=== PATIENT | female | born 1990 | race Caucasian/White ===

== ENCOUNTER → 2018-06-07 11:35 | Outpatient (CLI) | payer OTHER, SELFPAY ==
[2018-06-07 10:32] VITALS: BMI 38.2
[2018-06-07 13:05] LABS: Absolute Lymphocyte Count 1.57 X10^3/ul (0.83-4.51); Absolute Neutrophil Count 7.9 X10^3/uL (2.0-7.7); Basophil# 0.02 X10^3/uL; Basophil% 0.2 % (0-1); Eosinophil# 0.14 X10^3/uL; Eosinophils% 1.3 % (0-5); Hematocrit 42.3 % (37-47); Hemoglobin 14.1 g/dl (12.0-15.0); Lymphocyte # 1.57 X10^3/ul (4.0); Lymphocyte % 15.1 % (19-41); Mean Corp Hgb Conc 33.3 g/gl (32-36); Mean Corpuscular Hgb 30.7 pg (27.0-32.0); Mean Platelet Vol. 10.2 fl (6.2-12.0); Monocyte% 6.7 % (0-10); Neutrophil # 7.94 X10^3/uL (2.7-7.7); Neutrophil % 76.3 % (47-70); Platelet Count 373 K/mm3 (150-450); RBC Distribution Width CV 13.1 % (11.6-14.6); RBC Distribution Width SD 43.6 fl (35.1-43.9); White Blood Count 10.4 K/mm3 (4.4-11.0)
[2018-06-07 13:06] LABS: POSITIVE COUNT NO; POSITIVE DIFFERENTIAL NO; POSITIVE MORPHOLOGY NO
[2018-06-07 13:22] LABS: Glucose Challenge Gest 1H 50g 90 mg/dL (70-140)
[2018-06-07 14:15] LABS: HIV - WCH Non-Reactive (Nonreactive); Rubella IgG 325.4 IU/mL
[2018-06-07 20:21] LABS: Chlamydia Trachomatis by PCR Negative (Negative); Neisserai gonorrhoeae by PCR Negative (Negative); Probe Check PASS; Sample Adequacy Control PASS; Specimen Processing Control PASS
[2018-06-08 11:52] LABS: HEPATITIS B SURFACE AG Negative (Negative)
[2018-06-10 07:39] LABS: Rapid Plasmin Reagin (RPR) NONREACTIVE (NONREACTIVE)
[2018-06-14 08:52] LABS: HPV Reflexed? NOT INDICATED
== END ==
PROVIDERS: Nurse Practitioner Women's Health; Referring Provider Obstetrics & Gynecology; Visit Provider Obstetrics & Gynecology
DX: Z34.90 Encounter for supervision of normal pregnancy, unspecified, unspecified trimester (principal); Z12.4 Encounter for screening for malignant neoplasm of cervix
CPT/HCPCS: 36415; 82950; 85025; 86592; 86703; 86762; 86850; 86900; 87086; 87088; 87340; 87491; 87591; 87624; 88175; G0145

== ENCOUNTER → 2018-08-02 11:47 | Outpatient (CLI) | payer OTHER, SELFPAY ==
[2018-08-02 10:57] VITALS: BMI 38.2
[2018-08-02 17:35] LABS: Amphetamine Urine VISTA NEGATIVE (<1000 ng/mL); Barbiturate Urine VISTA NEGATIVE (< 200 ng/mL); Benzodiazepine Urine VISTA NEGATIVE (< 200 ng/mL); Cocaine Urine VISTA NEGATIVE (< 300 ng/mL); Ecstacy Urine VISTA NEGATIVE (< 500 ng/mL); Methadone Urine VISTA NEGATIVE (< 300 ng/mL); PCP Urine VISTA NEGATIVE (< 25 ng/mL); THC Urine VISTA POSITIVE (< 50 ng/mL); Vista UDS pH Range 5
== END ==
PROVIDERS: Referring Provider Nurse Practitioner Women's Health; Visit Provider Nurse Practitioner Women's Health
DX: F12.90 Cannabis use, unspecified, uncomplicated (principal)
CPT/HCPCS: 36415; 80307; 82105

== ENCOUNTER → 2018-08-30 | Outpatient (CLI) | payer OTHER, SELFPAY ==
[2018-08-30 12:09] VITALS: BMI 38.2
[2018-08-30 13:17] LABS: T4 Free Direct 1.66 ng/dL (0.76-1.46); Thyroid Stim Hormone (TSH) 0.45 uIU/mL (0.358-3.74)
[2018-08-30 13:19] LABS: Amphetamine Urine VISTA NEGATIVE (<1000 ng/mL); Barbiturate Urine VISTA NEGATIVE (< 200 ng/mL); Benzodiazepine Urine VISTA NEGATIVE (< 200 ng/mL); Cocaine Urine VISTA NEGATIVE (< 300 ng/mL); Ecstacy Urine VISTA NEGATIVE (< 500 ng/mL); Methadone Urine VISTA NEGATIVE (< 300 ng/mL); PCP Urine VISTA NEGATIVE (< 25 ng/mL); THC Urine VISTA POSITIVE (< 50 ng/mL); Vista UDS pH Range 6
== END | disposition home or self-care (01) ==
PROVIDERS: Referring Provider Obstetrics & Gynecology; Visit Provider Obstetrics & Gynecology
DX: C73 Malignant neoplasm of thyroid gland (principal); F12.90 Cannabis use, unspecified, uncomplicated
CPT/HCPCS: 36415; 80307; 84439; 84443

== ENCOUNTER → 2018-10-18 | Outpatient (CLI) | payer OTHER, SELFPAY ==
[2018-10-18 10:21] VITALS: BMI 38.2
[2018-10-18 11:30] LABS: Protein, Urine (Random) 1542.1 mg/dL (<11.9); Protein:Creat Ratio 5449 mg/g CRE (0-200)
[2018-10-18 11:41] LABS: Absolute Lymphocyte Count 1.51 X10^3/ul (0.83-4.51); Basophil# 0.03 X10^3/uL; Basophil% 0.2 % (0-1); Eosinophil# 0.09 X10^3/uL; Eosinophils% 0.7 % (0-5); Hematocrit 40.6 % (37-47); Hemoglobin 13.9 g/dl (12.0-15.0); Lymphocyte # 1.51 X10^3/ul (4.0); Lymphocyte % 12.1 % (19-41); Mean Corp Hgb Conc 34.2 g/gl (32-36); Mean Corpuscular Hgb 29.5 pg (27.0-32.0); Mean Corpuscular Volume 86.2 fL (81-99); Mean Platelet Vol. 11.6 fl (6.2-12.0); Monocyte# 0.83 X10^3/uL; Monocyte% 6.6 % (0-10); Neutrophil # 10.01 X10^3/uL (2.7-7.7); Neutrophil % 80.2 % (47-70); Platelet Count 283 K/mm3 (150-450); RBC Distribution Width CV 12.7 % (11.6-14.6); RBC Distribution Width SD 38.8 fl (35.1-43.9); Red Blood Count 4.71 M/mm3 (4.2-5.4); White Blood Count 12.5 K/mm3 (4.4-11.0)
[2018-10-18 11:42] LABS: POSITIVE COUNT NO; POSITIVE DIFFERENTIAL NO; POSITIVE MORPHOLOGY NO
[2018-10-18 12:05] LABS: Glucose Challenge Gest 1H 50g 94 mg/dL (70-140); T4 Free Direct 1.37 ng/dL (0.76-1.46); Thyroid Stim Hormone (TSH) 2.94 uIU/mL (0.358-3.74)
== END | disposition home or self-care (01) ==
LOC: LABSPEC 10:58 → PAVLAB 11:00
PROVIDERS: Referring Provider Obstetrics & Gynecology; Visit Provider Obstetrics & Gynecology
DX: O12.12 Gestational proteinuria, second trimester (principal); O26.892 Other specified pregnancy related conditions, second trimester; C73 Malignant neoplasm of thyroid gland; Z3A.28 28 weeks gestation of pregnancy
CPT/HCPCS: 36415; 82570; 82950; 84156; 84439; 84443; 85025

== ENCOUNTER → 2018-10-21 | Outpatient (CLI) | payer OTHER, SELFPAY ==
[2018-10-18 10:21] VITALS: BMI 38.2
[2018-10-21 18:02] LABS: 24HR. Urine Creatinine 1.35 g/24 HR (0.70-1.90)
[2018-10-21 18:05] LABS: 24H Urine Creat. Total Vol. 0.68 L
[2018-10-23 06:22] LABS: 24HR. UA Prot. Total Volume 675 mL
[2018-10-23 06:44] LABS: Urine Protein (24 Hour) 1817.8 mg/dL (<11.9)
== END | disposition home or self-care (01) ==
LOC: LAB 17:00
PROVIDERS: Referring Provider Obstetrics & Gynecology; Visit Provider Obstetrics & Gynecology
DX: O12.13 Gestational proteinuria, third trimester (principal); O09.93 Supervision of high risk pregnancy, unspecified, third trimester; Z3A.00 Weeks of gestation of pregnancy not specified
CPT/HCPCS: 82570; 84156

== ENCOUNTER 2018-10-23 14:25 | Inpatient (IN) | payer OTHER, SELFPAY ==
[2018-10-18 10:21] VITALS: BMI 38.2
[2018-10-23] VITALS (23 sets, daily range): BP systolic 126–165; BP diastolic 82–105; PULSE 61–70; RESP 16–24; TEMP 36.1–36.6; O2SAT 93–100; BMI 40.8
[2018-10-23] MEDS: Betamethasone/Betamethasone 30 MG/5 ML Vial 12 MG IM (13:33)
[2018-10-23] MEDS: Lactated Ringers 1,000 ML 50 ML IV (13:41)
[2018-10-23 13:46] LABS: Hematocrit 41.9 % (37-47); Hemoglobin 14.5 g/dl (12.0-15.0); Mean Corp Hgb Conc 34.6 g/gl (32-36); Mean Corpuscular Hgb 29.8 pg (27.0-32.0); Mean Corpuscular Volume 86.2 fL (81-99); Mean Platelet Vol. 11.1 fl (6.2-12.0); Platelet Count 266 K/mm3 (150-450); RBC Distribution Width CV 12.7 % (11.6-14.6); RBC Distribution Width SD 40.2 fl (35.1-43.9); Red Blood Count 4.86 M/mm3 (4.2-5.4); Scan Indicated on CBC? Y/N NO
[2018-10-23 13:53] LABS: Fibrinogen 365 mg/dl (203-444)
[2018-10-23 14:02] LABS: International Normalized Ratio 0.9; Prothrombin Time (Protime)PT. 12.4 SECONDS (11.7-14.9)
[2018-10-23 14:03] LABS: Partial Thromboplast Time 29.1 Seconds (24.1-36.2)
[2018-10-23 14:06] LABS: ALB/GLOB Ratio 0.8 RATIO (0.9-2.4); AST(SGOT) 90 U/L (15-37); Alanine Aminotransfer ALT/SGPT 56 U/L (13-56); Albumin, Serum 2.4 g/dL (3.2-5.0); Alkaline Phosphatase 82 U/L (45-117); Anion Gap 6 (5-15); BUN 19 mg/dL (7-18); BUN/Creat Ratio 18.6 RATIO (10-20); Calcium,Total 7.9 mg/dL (8.5-10.1); Chloride 107 mmol/L (98-107); Creatinine, Serum 1.02 mg/dL (0.55-1.02); EST Glomerular Filtration Rate 69 mL/min (>60); Est Glom Filt Rate - Afr Amer 83 mL/min (>60); Estimated Creatinine Clearance 80.56 ml/min; Glucose 82 mg/dL (74-106); LDH 471 U/L (84-246); Protein, Total 5.4 g/dL (6.4-8.2); Sodium Level 137 mmol/L (136-145); Uric Acid 8.9 mg/dL (2.6-6.0)
[2018-10-23] MEDS: Magnesium Sulfate 20 GM/500 ML BAG IV (14:10)
[2018-10-23] MEDS: Oxytocin 30 units/NS 500 ml 30 UNITS/500 ML IV.SOLN 167 UNITS IV (14:38)
[2018-10-23] MEDS: Cefazolin 2 GM in 0.9% Normal Saline 100 ML IV ×2 (14:42→21:41)
[2018-10-23] MEDS: HYDROmorphone 0.5 MG/0.5 ML SYRINGE IV ×3 (14:50→19:47)
[2018-10-23] MEDS: Ondansetron 4 MG/2 ML Vial IV ×2 (14:52→22:30)
--- NOTE | 2018-10-23 15:37 | HP.PCM_ITS ---
- Problem List (1) Severe preeclampsia Status: Acute (2) Proteinuria affecting in third trimester Status: Acute Comment: plan weekly labs, weekly NST, plan home BP monitoring, MFM consult (3) anomaly Status: Acute Comment: Right/Left pyelectasis - repeat US with MFM in 6 weeks. (4) White coat syndrome with high blood pressure but without hypertension Status: Acute Comment: all normal both at work and in office (5) Status: Acute Qualifiers: Weeks of gestation: 25 weeks Qualified Code(s): Z3A.25 - 25 weeks gestation of Comment: carrier and genetic screening declined, AFP- negative. anatomy us ordered. fu us in 2 wks to complete spine views (6) Uses marijuana Status: Acute Comment: Random drug screen; Pos cannaboids 08/30- needs tox screen at next visit. (7) Thyroid cancer Status: Acute Comment: surgery and radiation iodine 2014, recurred 2016 lymph nodes removed. (8) Placental abruption in third trimester Status: Acute History Date of Admission: 10/23/18 Final JAZMINE: 01/07/19 Gestational age: 29 Weeks and 1 Days History of this : This is a 28 year-old, at 29w1d weeks gestational age presents for evaluation secondary to severe proteinuria on a 24-hour urine. Patient complains of nausea and vomiting and intermittent headache since night. She was seen in the office last Wednesday and had elevated protein in her urine but normal blood work and blood pressure. Upon evaluation initially blood pressures were in the 170s to 190s over 110s. Initial 24-hour urine was 12,000 and one liver enzyme was elevated as well as a high uric acid and a creatinine of 1.0. Platelets were normal and the rest of testing was within normal limits. She was treated with labetalol 20, 40, and 80 mg IV were given and magnesium was started. Blood pressure normalized to 140/84 and after having a reassuring tracing there was a sudden bradycardia into the 80s. This was confirmed on ultrasound and did not resolve with position changes fluid or oxygen. The suspicion for abruption was made and therefore the patient was taken to the back and the decision for immediate was made. Medical History: Medical History (Last Reviewed 10/18/18 @ 10:20 by Val Thornton) Thyroid cancer C73 Surgical History: Surgical History (Last Reviewed 10/18/18 @ 10:20 by Val Thornton) lymphadenectomy Onset Date: ~2016 neck- 36 lymph nodes removed 2 were cancer S/P thyroidectomy Onset Date: ~2014 Z98.890 Allergies No Known Allergies Allergy (Verified 10/18/18 10:20) Home Medications: Home Medications levothyroxine 300 mcg tablet 300 mcg PO DAILY 06/07/18 vitamin,calcium,yxzhrtxq-avye-rhiet acid tablet 1 tab PO DAILY 08/02/18 Smoking Status: Former smoker Alcohol: None Substance Use Type: Marijuana Number of Fetus(es): 1 Heart Tracins moderate variability and then terminal brenton History Past Pregnancies: Past Pregnancies Delivery Date Name GA/Weeks Outcome Route Weight Gender Labor Length Anesthesia Delivery Location Provider FOB Labs: Mom's Problem List Problem Status Onset Code Severe preeclampsia Acute O14.10 Placental abruption in third trimester Acute O45.93 Mom's Labs & Results 10/23/18 10/23/18 10/23/18 13:35 13:35 13:35 WBC 15.0 H RBC 4.86 Hgb 14.5 Hct 41.9 MCV 86.2 MCH 29.8 MCHC 34.6 RDW 12.7 RDW Differential 40.2 Plt Count 266 MPV 11.1 PT 12.4 INR 0.9 APTT 29.1 Fibrinogen Sodium Potassium Chloride Carbon Dioxide Anion Gap BUN Creatinine Cancelled Estim Creat Clear Calc Cancelled Est GFR (MDRD) Af Amer Cancelled Est GFR (MDRD) Non-Af Cancelled BUN/Creatinine Ratio Glucose Uric Acid Cancelled Calcium Total Bilirubin AST Cancelled ALT Cancelled Alkaline Phosphatase Lactate Dehydrogenase Total Protein Albumin Globulin Albumin/Globulin Ratio Blood Type Antibody Screen 10/23/18 10/23/18 10/23/18 13:35 13:35 14:50 WBC RBC Hgb Hct MCV MCH MCHC RDW RDW Differential Plt Count MPV PT INR APTT Fibrinogen 365 Sodium 137 Potassium 4.0 Chloride 107 Carbon Dioxide 24.0 Anion Gap 6 BUN 19 H Creatinine 1.02 Estim Creat Clear Calc 80.56 Est GFR (MDRD) Af Amer 83 Est GFR (MDRD) Non-Af 69 BUN/Creatinine Ratio 18.6 Glucose 82 Uric Acid 8.9 H Calcium 7.9 L Total Bilirubin 0.40 AST 90 H ALT 56 Alkaline Phosphatase 82 Lactate Dehydrogenase 471 H Total Protein 5.4 L Albumin 2.4 L Globulin 3.0 Albumin/Globulin Ratio 0.8 L Blood Type Pending Antibody Screen Pending Social History Smoking Status Former smoker Substance Use Type Marijuana Expected Delivery Method: Primary Section Review of Systems Constitutional: Denies: Fever, Malaise Eyes: Denies: Blurred vision, Vision Change HEENT: Denies: Head Aches, Visual Changes Cardiovascular: Denies: Chest Pain, Palpitations Respiratory: Denies: Cough, Shortness of Breath, Wheezing Gastrointestinal: Denies: Abdominal Pain, Diarrhea, Nausea, Vomiting Genitourinary: Denies: Dysuria, Hematuria Musculoskeletal: Denies: Joint Pain, Muscle pain Skin: Denies: Lesions, Rash Neurological: Denies: Blurred vision, Focal weakness, Headaches Psychiatric: Denies: Anxiety, Depression Endocrine: Denies: Heat/ Cold Intolerance Hematologic/ Lymphatic: Denies: Easy Bruising, Easy Bleeding Physical Exam General: Alert, Cooperative, No apparent distress HEENT: Atraumatic, Normocephalic. Negative for: Thyromegaly, Lymphadenopathy Cardiovascular: Regular rate Lungs: Normal air movement Abdomen: Soft, Non Tender, Gravid Neurological: Deep Tendon Reflexes 2+/4 and Symmetrical, Neuro grossly intact. Negative for: Clonus TELEPHONE CLAIMS REPRESENTATIVE: Normal external genitalia. Negative for: Vulvar lesions Estimated gestational size: Appropriate for gestational size Presentation: Cephalic Assessment/Plan All Active Problems (Last Reviewed 10/18/18 @ 10:20 by Val Thornton) Severe preeclampsia (Acute) Placental abruption in third trimester (Acute) Proteinuria affecting in third trimester (Acute) anomaly (Acute) White coat syndrome with high blood pressure but without hypertension (Acute) (Acute) Uses marijuana (Acute) Thyroid cancer (Acute) Supervision of normal first (Acute) Nausea/vomiting in (Resolved) This is a 28 year-old, , at 29w1d weeks gestational age with severe preeclampsia and abruption. 1. severe preeclampsia and complete abruption- patient underwent stat . continue magnesium , follow labs 2. acute renal insufficiency- follow Cr and proteinuria 3. prematurity- s/p 1 dose BMZ
--- NOTE | 2018-10-23 16:16 | PCM.OPRPT ---
Problem List (1) Severe preeclampsia Status: Acute (2) Proteinuria affecting in third trimester Status: Acute Comment: plan weekly labs, weekly NST, plan home BP monitoring, MFM consult (3) anomaly Status: Acute Comment: Right/Left pyelectasis - repeat US with MFM in 6 weeks. (4) White coat syndrome with high blood pressure but without hypertension Status: Acute Comment: all normal both at work and in office (5) Status: Acute Qualifiers: Weeks of gestation: 25 weeks Qualified Code(s): Z3A.25 - 25 weeks gestation of Comment: carrier and genetic screening declined, AFP- negative. anatomy us ordered. fu us in 2 wks to complete spine views (6) Uses marijuana Status: Acute Comment: Random drug screen; Pos cannaboids 08/30- needs tox screen at next visit. (7) Thyroid cancer Status: Acute Comment: surgery and radiation iodine 2014, recurred 2016 lymph nodes removed. (8) Placental abruption in third trimester Status: Acute Delivery Classification: Stat Final JAZMINE: 01/07/19 Gestational age: 29 Weeks and 1 Days Indications: severe preeclampsia at 29 weeks with acute complete abruption Indications for : Distress Description of Procedure: 28-year-old G1, P0 at 29 weeks 1 day presents secondary to severe proteinuria, upon evaluation was diagnosed with severe preeclampsia and then developed an acute abruption with a bradycardia. Patient denied any abdominal pain or vaginal bleeding but heart rate was in the 80s and not recovering despite position changes, fluid, oxygen, and reviewing blood pressures. Patient was taken to the back and placed under general anesthesia. Tilley catheter was placed. The patient was placed in the dorsal supine position with leftward tilt. Patient was prepped and draped in the normal sterile fashion. Pfannenstiel skin incision was made with the scalpel and carried through to the underlying layer of fascia with the scalpel. Fascia was nicked in the midline and the incision extended laterally. The peritoneum was entered digitally. The incision was stretched and a low transverse uterine incision was made with the scalpel. Upon incision into the uterus the entire gestational sac and placenta came out en bloc with the baby inside noting a complete separation of the placenta from the uterus present with no significant blood clot formed beyond the placenta yet. The cord was clamped and cut and the infant was handed off to awaiting nurse. Cord gases were sent and the ABG pH was 7.06 and the VBG pH was 7.128. The uterus was exteriorized cleared of all clots and debris, and the incision was closed in a double layer closure using #1 Monocryl. The uterus was returned to the maternal abdomen and gutters were cleared of all clots and debris. The ovaries and fallopian tubes were noted to be within normal limits. The peritoneum was closed with 3-0 Monocryl in a running fashion. Fascia was closed with 0 PDS in a running fashion. Subcutaneous tissue was copiously irrigated and the skin was closed with 3-0 Monocryl in a subcuticular fashion. Steri-Strips and Mepilex dressing were applied without complication. Patient was taken to recovery in stable condition. Amniotic Membrane Rupture Type: Artificial Amniotic Fluid Description: Clear Placenta Disposition: [facility] Specimen(s) sent to pathology: placenta Drain: Tilley to straight drain Cord Entanglement: Around neck x 1, loose Esitmated Blood Loss (ml): 800 Gender: Male Delayed cord clamping: No Pre-op Antibiotic Given: - - azithromycin Complications: - - complete abruption - Admit VTE Documentation VTE Present on Admission: No VTE Mechan Device Prophylaxis: SCD's
[2018-10-23 16:23] LABS: Amphetamine Urine VISTA NEGATIVE (<1000 ng/mL); Barbiturate Urine VISTA NEGATIVE (< 200 ng/mL); Benzodiazepine Urine VISTA NEGATIVE (< 200 ng/mL); Cocaine Urine VISTA NEGATIVE (< 300 ng/mL); Ecstacy Urine VISTA NEGATIVE (< 500 ng/mL); Methadone Urine VISTA NEGATIVE (< 300 ng/mL); PCP Urine VISTA NEGATIVE (< 25 ng/mL); THC Urine VISTA POSITIVE (< 50 ng/mL); Vista UDS pH Range 5
[2018-10-23 16:48] LABS: Hematocrit 40.5 % (37-47); Hemoglobin 13.8 g/dl (12.0-15.0); Mean Corp Hgb Conc 34.1 g/gl (32-36); Mean Corpuscular Hgb 29.7 pg (27.0-32.0); Mean Corpuscular Volume 87.3 fL (81-99); Platelet Count 221 K/mm3 (150-450); RBC Distribution Width CV 12.7 % (11.6-14.6); RBC Distribution Width SD 40.8 fl (35.1-43.9); Red Blood Count 4.64 M/mm3 (4.2-5.4); White Blood Count 16.2 K/mm3 (4.4-11.0)
[2018-10-23 16:49] LABS: Scan Indicated on CBC? Y/N NO
[2018-10-23 16:57] LABS: Prothrombin Time (Protime)PT. 12.7 SECONDS (11.7-14.9)
[2018-10-23 16:58] LABS: Fibrinogen 333 mg/dl (203-444); Partial Thromboplast Time 28.9 Seconds (24.1-36.2)
[2018-10-23 17:02] LABS: AST(SGOT) 89 U/L (15-37); Alanine Aminotransfer ALT/SGPT 58 U/L (13-56); Creatinine, Serum 1.11 mg/dL (0.55-1.02); EST Glomerular Filtration Rate 62 mL/min (>60); Est Glom Filt Rate - Afr Amer 76 mL/min (>60); Estimated Creatinine Clearance 74.03 ml/min
[2018-10-23] MEDS: 0.9% Saline Lock 10 ML Syringe IV (17:37)
[2018-10-23] MEDS: Labetalol 100 MG Tablet PO (18:13)
--- NOTE | 2018-10-23 21:51 | NURSING ---
Respiratory called to come down and set up pt. with incentive spirometer.
[2018-10-23] MEDS: oxyCODONE 5 MG Tablet PO (22:37)
[2018-10-24] VITALS (24 sets, daily range): BP systolic 128–160; BP diastolic 79–98; PULSE 64–85; RESP 14–18; TEMP 36.4–36.7; O2SAT 88–98
[2018-10-24] MEDS: Magnesium Sulfate 20 GM/500 ML BAG IV ×2 (00:22→11:30)
--- NOTE | 2018-10-24 00:59 | NURSING ---
Pt. used double pump to pump for 15 minutes at 0030. This RN educated pt. on the importance of pumping and breast stimulation every 2-3 hours. Pt. verbalized understanding.
[2018-10-24] MEDS: oxyCODONE 5 MG Tablet PO ×5 (03:26→21:54)
--- NOTE | 2018-10-24 03:43 | NURSING ---
Pt. using double breast pump.
[2018-10-24] MEDS: Levothyroxine 150 MCG Tablet 300 MCG PO (03:53)
[2018-10-24] MEDS: Ondansetron 4 MG/2 ML Vial IV ×2 (04:36→11:46)
[2018-10-24 05:04] LABS: Hematocrit 38.2 % (37-47); Hemoglobin 13.4 g/dl (12.0-15.0); Mean Corp Hgb Conc 35.1 g/gl (32-36); Mean Corpuscular Hgb 29.9 pg (27.0-32.0); Mean Corpuscular Volume 85.3 fL (81-99); Platelet Count 211 K/mm3 (150-450); RBC Distribution Width CV 12.5 % (11.6-14.6); RBC Distribution Width SD 37.9 fl (35.1-43.9); Red Blood Count 4.48 M/mm3 (4.2-5.4); White Blood Count 17.5 K/mm3 (4.4-11.0)
[2018-10-24 05:09] LABS: Scan Indicated on CBC? Y/N NO
[2018-10-24 05:20] LABS: ALB/GLOB Ratio 0.7 RATIO (0.9-2.4); AST(SGOT) 55 U/L (15-37); Alanine Aminotransfer ALT/SGPT 46 U/L (13-56); Albumin, Serum 2.1 g/dL (3.2-5.0); Alkaline Phosphatase 74 U/L (45-117); Anion Gap 12 (5-15); BUN 17 mg/dL (7-18); BUN/Creat Ratio 18.5 RATIO (10-20); Calcium,Total 7.5 mg/dL (8.5-10.1); Chloride 102 mmol/L (98-107); Creatinine, Serum 0.92 mg/dL (0.55-1.02); EST Glomerular Filtration Rate 78 mL/min (>60); Est Glom Filt Rate - Afr Amer 94 mL/min (>60); Estimated Creatinine Clearance 89.32 ml/min; Glucose 117 mg/dL (74-106); Potassium 4.5 mmol/L (3.5-5.1); Protein, Total 5.1 g/dL (6.4-8.2); Sodium Level 135 mmol/L (136-145)
--- NOTE | 2018-10-24 05:30 | NURSING ---
Pt. reports having a frontal headache. Denies any vision changes. Blood pressure 134/86. Tylenol given. Will continue to monitor.
[2018-10-24] MEDS: Acetaminophen 500 MG Tablet 1000 MG PO ×2 (05:49→20:07)
[2018-10-24] MEDS: Enoxaparin 40 MG/0.4 ML Syringe SC ×2 (05:49→17:41)
--- NOTE | 2018-10-24 06:59 | NURSING ---
Pt. awake and pumping. This RN took off nasal cannula oxygen to see how pt. maintains. Pulse ox held steady at 96% for a couple of minutes then dropped down to 88%. Oxygen reapplied to pt, and pulse ox went back up to 97%. Pt. denies shortness of breath. Lung sounds clear to auscultation, no wheezing or crackles noticed. RN will notify physician and continue to monitor.
[2018-10-24 08:17] LABS: Magnesium 6.8 mg/dL (1.6-2.6)
[2018-10-24] MEDS: Labetalol 100 MG Tablet PO (09:39)
[2018-10-24] MEDS: Prenatal Vits Tablet 1 TABLET PO (09:39)
[2018-10-24 10:01] LABS: Protein, Urine (Random) 689.8 mg/dL (<11.9); Protein:Creat Ratio 3466 mg/g CRE (0-200)
[2018-10-24] MEDS: Senna/Docusate Sodium 1 Tablet PO (13:35)
--- NOTE | 2018-10-24 15:50 | CASEMGMT ---
Addendum entered and electronically signed by Brooklyn England 10/26/18 14:24: Clarification - MOB and FOB live in an apartment. Home written in error. emerald Original Note: Social Work Assessment Labor and Delivery Unit Date of Referral: 10/24/2018 Time of Referral: 0249; 1156 Referred By: Dr. Engle Date of Intervention: 10/24/2018 Time of Intervention: 1550 Reason for Referral: 1. maternal history of THC with positive tox screen at admission, 29 week delivery and baby transferred to [facility]. 2. PHQ9 score of 9 History obtained from: patient/mother of baby (MOB) Lisseth Beardson and medical records. Household composition: MOB and father of baby (FOB) Aniya Madden live together in own home. MOB reports home situation is safe and adequate. Also in the home are pet dogs and cat. Patient's parent/guardian status: MOB is 28 year old single female involved with FOB for the last 1.5 years. MOB denies any safety concerns or history of abuse in this relationship. [place] baby, Dhaval Madden (born 10.23.2017) is the first child for both parents. Medical History: MOB is G1, P0 to 1 after delivering Dhaval at 29 weeks gestation. MOB with care starting at 9 weeks and good thereafter. Record indicates MOB with history of thyroid cancer, pre-eclampsia and placental abruption. Baby born weighing 2 pounds 5 ounces. Apgars 2-6-8 at 1-5-10 minutes of life respectively. MOB delivered baby via STAT caesarian section. Educational Status: MOB reports to have a high school diploma. Denies any IEP in school, denies any reading, writing, or learning comprehension issues. Financial Status: MOB was working at [employer] and has worked there for about 8 years in total between [place] and [place]. FOB works as general manage for [employer]. Infant Supplies: MOB reports to have some baby supplies including a crib, car seat, and some clothing. MOB reports the baby shower is set for the end of the month. MOB will need to get some preemie clothing. Childcare/Caregiver(s): MOB plans to be primary caregiver with help from FOB and family. Transportation: Reports to have adequate transportation. Programs/Agencies Involved: MOB denies any agency involvement. Denies needs for WIC at this point. Children Services/Legal Issues: None reported. Behavioral Health Issues: Mental Health History: MOB reports history of depression and anxiety after MOB was diagnoses with Thyroid Cancer, having surgery and then finding out MOB's mother of drug overdose the same day. MOB reports then developed cancer a second time 2 years later. OCTAVIA reports was treated with medications in the state of [place], 3 different types that MOB unable to recall the names of during social work assessment. MOB reports took self off cold turkey and felt side effects, and learned a lesson that should work with doctors if wanting to change medications. MOB reports went to a counselor in [place], as around the time MOB stopped the medications is when MOB moved to [place]. MOB denies any history of psychiatric hospitalization, denies any history of thoughts of harm to self/no thoughts/plans/intent for suicide. MOB admits one time in [place] having thoughts of wanting to kill MOB's exboyfriend but was stopped by others from acting on thoughts. MOB denies any history of thoughts of harm to others since. PHQ9: MOB scored a 9 for the depression this admission, falling into the range of mild depression symptoms. MOB had indicated sleeping too much, but also questions whether this is in part due to MOB's physical issues related to and preeclampsia. MOB also attributes the appetite and energy issues as directly related to physical issues in rather than due to mood. MOB reports to feel happy at this time, denies depression, though is worried about her baby. Substance Use History: MOB denies use or abuse of alcohol during . MOB denies any history of cocaine, heroin, meth, or prescription pills. MOB endorsees use of marijuana during to help with appetite. MOB reports did not want to do the prescription medication route as has read too many negative things. MOB reports ingested the marijuana by smoking and eating gummies. MOB reports last use was 1-2 weeks ago and was intermittent use. MOB reports to be a former tobacco smoker. Family History: MOB's mother 4 years ago of a drug overdose. MOB reports her mother hid the addiction well from others. Drug Screens: MOB with positive drug screens for marijuana on 08-02-2018, 08-30-2018, and at delivery on 10-23-2018. No screens noted for baby, as baby transferred to [facility] shortly after delivering. Family/Social Stressors: premature delivery and baby now at [facility]. Support Systems: MOB reports FOB is supportive and helpful. Identifies a great aunt and uncle who raised MOB and had guardianship of MOB as good supports. MOB reports that FOB's mother is another good support person to help out with the baby. ASSESSMENT: MOB pleasant and cooperative with social work visit. MOB held good eye contact. MOB answered questions and did expand on answers when appropriate, such as discussing history of depression and when that history surfaced. MOB reports to have a good support system at this time, and has started to get things ready for baby. MOB tearful when talking about guilt feelings about baby being born premature, that MOB had gotten sick earlier in the week after eating and had attributed this to the flu. MOB reports the FOB wanted MOB to go to the ER but MOB refused due to thinking that was fine and just dealing with flu symptoms. Supportive listening offered and encouragement given to MOB. Discussed with MOB that a director social service from [facility] will be following and that for continuity of care of baby and family will be giving handoff report to the [facility] director social service. MOB voiced understanding. Educated MOB to need to call children services due to repeated positive drug screens and substance exposure to baby in utero. MOB voiced understanding. Answer MOB's questions as able. Safe Plan of Care for infant related to substance use: MOB reports will not be using marijuana moving forward and reports that use of marijuana was only during , that before did not use this substance. PLAN: MOB given information on [facility] resources as well as depression packed. Educated to [facility] and informed MOB that [facility] will likely follow up with MOB about receptivity to referral. Plan to call [facility] Children Services about substance exposed infant. MOB is aware. -DARIEN Ren, INTERFACE ENGINEER
--- NOTE | 2018-10-24 16:30 | CASEMGMT ---
Social Work Labor and Delivery Handoff report to Christi Higgins, psychiatric social worker supervisor at [facility] ([phone]). Christi asked if this typewriter aligner will be calling children services. Confirmed plan to do so. Christi reports to have packet of resources to review with MOB, after this typewriter aligner mentioned to Crhisti as to whether baby may qualify for disability related to gestational age and weight. -MIGUEL Ren, LACTATION NURSE
--- NOTE | 2018-10-24 21:17 | NURSING ---
BP of 160/09 at 1945 and 151/98 at 1999, informed Dr Engle when she was on floor rounding on pt. Pt has slight headache, Tylenol given. Pt has +1 reflexes and +1 edema in lower extremities. Orders given to increase labetalol to 200mg po BID and give first dose now.
[2018-10-24] MEDS: Labetalol 200 MG Tablet PO (21:53)
[2018-10-25] VITALS (13 sets, daily range): BP systolic 134–166; BP diastolic 76–97; PULSE 67–87; RESP 16–24; TEMP 36.4–36.9; O2SAT 96–98
--- NOTE | 2018-10-25 00:46 | PCM.PN.OB ---
Patient Problems: Active and Suspected Problems (Last Reviewed 10/18/18 @ 10:20 by Val Thornton) Severe preeclampsia (Acute) Placental abruption in third trimester (Acute) Subjective: late entry - patient seen 10/24/18 at 8 am- feels dizzy with magnesium, had some emesis yesterday but eating breakfast now. denies any CP SOB, no MONTESINOS or visual changes - Physical Exam General: Alert, Oriented x3 Cardiovascular: Regular rate Abdomen: Soft, Non Tender Vital Signs Temp Pulse Resp BP Pulse Ox 98.1 F 68 18 157/97 H 97 10/24/18 19:45 10/25/18 00:30 10/25/18 00:30 10/25/18 00:30 10/24/18 19:45 Oxygen Flow Rate (L/min) 1 Oxygen Delivery Method Room Air Weight: 260 lb 5.855 oz Body Mass Index (BMI) 40.8 Intake and Output for Last 24 Hours 10/23/18 10/24/18 10/25/18 23:59 23:59 23:59 Intake Total 2452 / 2452 2169 / 2169 Output Total 472 / 472 1828 / 1828 Balance 1979 / 1979 341 / 341 Laboratory Tests Past 24 Hrs 10/24/18 10/24/18 10/24/18 04:54 04:54 07:45 WBC 17.5 H RBC 4.48 Hgb 13.4 Hct 38.2 MCV 85.3 MCH 29.9 MCHC 35.1 RDW 12.5 RDW Differential 37.9 Plt Count 211 MPV 11.0 Sodium 135 L Potassium 4.5 Chloride 102 Carbon Dioxide 21.0 Anion Gap 12 BUN 17 Creatinine 0.92 Estim Creat Clear Calc 89.32 Est GFR (MDRD) Af Amer 94 Est GFR (MDRD) Non-Af 78 BUN/Creatinine Ratio 18.5 Glucose 117 H Calcium 7.5 L Magnesium 6.8 H* Total Bilirubin 0.30 AST 55 H ALT 46 Alkaline Phosphatase 74 Total Protein 5.1 L Albumin 2.1 L Globulin 3.0 Albumin/Globulin Ratio 0.7 L U Random Total Protein Urine Creatinine Protein/Creatinin Ratio 10/24/18 09:25 WBC RBC Hgb Hct MCV MCH MCHC RDW RDW Differential Plt Count MPV Sodium Potassium Chloride Carbon Dioxide Anion Gap BUN Creatinine Estim Creat Clear Calc Est GFR (MDRD) Af Amer Est GFR (MDRD) Non-Af BUN/Creatinine Ratio Glucose Calcium Magnesium Total Bilirubin AST ALT Alkaline Phosphatase Total Protein Albumin Globulin Albumin/Globulin Ratio U Random Total Protein 689.8 H Urine Creatinine 199.00 Protein/Creatinin Ratio 3466 H Medical Necessity - Tobacco Use Smoking Status: Former smoker Assessment/Plan All Active Problems (Last Reviewed 10/18/18 @ 10:20 by Val Thornton) Severe preeclampsia (Acute) Placental abruption in third trimester (Acute) Proteinuria affecting in third trimester (Acute) anomaly (Acute) White coat syndrome with high blood pressure but without hypertension (Acute) (Acute) Uses marijuana (Acute) Thyroid cancer (Acute) Supervision of normal first (Acute) Nausea/vomiting in (Resolved) S/P Stat LTCS with severe preeclampsia and abruption POD 1 1. severe preeclampsia and complete abruption- patient underwent stat . continue magnesium x 24 hours, labetalol 100mg BID, labs improving 2. acute renal insufficiency- proteinuris and CR recovering well 3. routine postop care- ambulate, increase po intake, oral pain control 4. rubella immune 5. Rh positive
--- NOTE | 2018-10-25 01:11 | PCM.PN.OB ---
Patient Problems: Active and Suspected Problems (Last Reviewed 10/18/18 @ 10:20 by Val Thornton) Severe preeclampsia (Acute) Placental abruption in third trimester (Acute) Subjective: late entry- patient seen at 9:00 pm 10/24/18- significant improvement in symptoms since magnesium discontinued. tolerating po no CP SOB N V MONTESINOS BV. ambulating. - Physical Exam General: Alert, Oriented x3 Vital Signs Temp Pulse Resp BP Pulse Ox 98.1 F 68 18 157/97 H 97 10/24/18 19:45 10/25/18 00:30 10/25/18 00:30 10/25/18 00:30 10/24/18 19:45 Oxygen Flow Rate (L/min) 1 Oxygen Delivery Method Room Air Weight: 260 lb 5.855 oz Body Mass Index (BMI) 40.8 Intake and Output for Last 24 Hours 10/23/18 10/24/18 10/25/18 23:59 23:59 23:59 Intake Total 2452 / 2452 2169 / 2169 Output Total 472 / 472 1828 / 1828 Balance 1979 / 1979 341 / 341 Laboratory Tests Past 24 Hrs 10/24/18 10/24/18 10/24/18 04:54 04:54 07:45 WBC 17.5 H RBC 4.48 Hgb 13.4 Hct 38.2 MCV 85.3 MCH 29.9 MCHC 35.1 RDW 12.5 RDW Differential 37.9 Plt Count 211 MPV 11.0 Sodium 135 L Potassium 4.5 Chloride 102 Carbon Dioxide 21.0 Anion Gap 12 BUN 17 Creatinine 0.92 Estim Creat Clear Calc 89.32 Est GFR (MDRD) Af Amer 94 Est GFR (MDRD) Non-Af 78 BUN/Creatinine Ratio 18.5 Glucose 117 H Calcium 7.5 L Magnesium 6.8 H* Total Bilirubin 0.30 AST 55 H ALT 46 Alkaline Phosphatase 74 Total Protein 5.1 L Albumin 2.1 L Globulin 3.0 Albumin/Globulin Ratio 0.7 L U Random Total Protein Urine Creatinine Protein/Creatinin Ratio 10/24/18 09:25 WBC RBC Hgb Hct MCV MCH MCHC RDW RDW Differential Plt Count MPV Sodium Potassium Chloride Carbon Dioxide Anion Gap BUN Creatinine Estim Creat Clear Calc Est GFR (MDRD) Af Amer Est GFR (MDRD) Non-Af BUN/Creatinine Ratio Glucose Calcium Magnesium Total Bilirubin AST ALT Alkaline Phosphatase Total Protein Albumin Globulin Albumin/Globulin Ratio U Random Total Protein 689.8 H Urine Creatinine 199.00 Protein/Creatinin Ratio 3466 H Medical Necessity - Tobacco Use Smoking Status: Former smoker Assessment/Plan All Active Problems (Last Reviewed 10/18/18 @ 10:20 by Val Thornton) Severe preeclampsia (Acute) Placental abruption in third trimester (Acute) Proteinuria affecting in third trimester (Acute) anomaly (Acute) White coat syndrome with high blood pressure but without hypertension (Acute) (Acute) Uses marijuana (Acute) Thyroid cancer (Acute) Supervision of normal first (Acute) Nausea/vomiting in (Resolved) S/P Stat LTCS with severe preeclampsia and abruption POD 1 1. severe preeclampsia and complete abruption- patient underwent stat . S/P magnesium x 24 hours, labetalol 100mg BID will increase to 200mg BID due to rising bps 2. acute renal insufficiency- proteinuria and CR recovering well, good urine output 3. routine postop care- ambulate, oral pain control 4. rubella immune 5. Rh positive
[2018-10-25] MEDS: oxyCODONE 5 MG Tablet PO ×3 (03:10→21:56)
[2018-10-25] MEDS: Levothyroxine 150 MCG Tablet 300 MCG PO (05:36)
[2018-10-25] MEDS: Enoxaparin 40 MG/0.4 ML Syringe SC ×2 (05:37→18:52)
[2018-10-25] MEDS: Prenatal Vits Tablet 1 TABLET PO (10:01)
[2018-10-25] MEDS: Labetalol 200 MG Tablet PO (10:01)
--- NOTE | 2018-10-25 11:03 | PCM.PN.OB ---
Patient Problems: Active and Suspected Problems (Last Reviewed 10/18/18 @ 10:20 by Val Thornton) Severe preeclampsia (Acute) Placental abruption in third trimester (Acute) Subjective: doing better, feeling more energy and more clear now off the magnesium, pain controlled no CP SOB N V ambulating some but needs to increase tolerating po lochia moderate, - Physical Exam General: Alert, Oriented x3 Abdomen: Soft, Non Tender, - - incision: C/D/I Vital Signs Temp Pulse Resp BP Pulse Ox 97.6 F L 75 22 H 151/87 H 96 10/25/18 09:00 10/25/18 09:00 10/25/18 09:00 10/25/18 09:00 10/25/18 04:00 Oxygen Flow Rate (L/min) 1 Oxygen Delivery Method Room Air Weight: 260 lb 5.855 oz Body Mass Index (BMI) 40.8 Intake and Output for Last 24 Hours 10/23/18 10/24/18 10/25/18 23:59 23:59 23:59 Intake Total 2452 / 2452 2169 / 2169 Output Total 472 / 472 1828 / 1828 Balance 1979 / 1979 341 / 341 Medical Necessity - Tobacco Use Smoking Status: Former smoker Assessment/Plan All Active Problems (Last Reviewed 10/18/18 @ 10:20 by Val Thornton) Severe preeclampsia (Acute) Placental abruption in third trimester (Acute) Proteinuria affecting in third trimester (Acute) anomaly (Acute) White coat syndrome with high blood pressure but without hypertension (Acute) (Acute) Uses marijuana (Acute) Thyroid cancer (Acute) Supervision of normal first (Acute) Nausea/vomiting in (Resolved) S/P Stat LTCS with severe preeclampsia and abruption POD 2 1. severe preeclampsia and complete abruption- patient underwent stat . S/P magnesium x 24 hours, labetalol 100mg BID will increase to 200mg BID due to rising bps 2. acute renal insufficiency- proteinuria and CR recovering well, good urine output 3. routine postop care- ambulate, oral pain control 4. rubella immune 5. Rh positive
[2018-10-25] MEDS: Labetalol 100 MG Tablet PO (11:33)
[2018-10-25] MEDS: Senna/Docusate Sodium 1 Tablet PO (13:52)
--- NOTE | 2018-10-25 15:53 | DCINST_ITS ---
Discharge Diet: No Restrictions Discharge Activity: May Not Drive - for 2 weeks, May not drive while taking narcotic pain medications., May Shower, May Take a Tub Bath - in 7 days May resume sexual activity in: 4-6 weeks Lifting Restrictions: 20 pounds Additional Activity Instructions:: Nothing in the vagina for 4-6 weeks. You may return to work/school in 6 weeks. Call your doctor if your incision/area has: Continuous Slow Oozing, Sudden Increased Bleeding, Increased Pain/ Swelling, Increased Redness, Foul Smelling Discharge Call your doctor if you observe: Fever of 101 or Higher, Using more than one pad per hour - for 2 hours Suture Line Care: Avoid Pulling/Pushing, Avoid Pinching/Bending Cleanse incision/area with: Keep Dressing Clean & Dry Additional Instructions: If you experience any of the following, contact your healthcare provider. * Bleeding that soaks a pad every hour for 2 hours * Fever 100.4 or higher * Unrelieved incision or abdominal pain * Swelling, redness, discharge or bleeding from your incision or episiotomy site * Your incision begins to separate * Problems urinating (including inability to urinate or burning while urinating). * Visual changes * Severe headache * Flu-like symptoms * Pain or redness in one of both of your breasts * Pain, warmth, tenderness or swelling in your legs, especially the calf area * Frequent nausea and vomiting * Symptoms of depression or anxiety If you experience any of the following, call 911 or go to the nearest Emergency Room. * Chest pain * Problems breathing * Seizure activity * Partial or complete paralysis of a body part, slurred speech, weakness or drooping of the face, or a sudden inability to walk or hold your balance Allergies/Adverse Reactions: Allergies Bleach (Sodium Hypochlorite) Allergy (Verified 10/23/18 22:50) Anaphylaxis Medications to take at Discharge levothyroxine 300 mcg tablet 300 mcg PO DAILY 06/07/18 vitamin,calcium,bmbcjlyh-cmnr-jlqhn acid tablet 1 tab PO DAILY 08/02/18 Blood Pressure Kit TrayLarge [Blood Pressure Monitor] 1 ea MC BID #1 kit 10/25/18 Labetalol [Trandate (Beta Carmelo)] 300 mg PO BID #60 tab 10/25/18 Oxycodone HCl/Acetaminophen [Percocet 5-325] 1 - 2 tablet PO Q4H PRN PRN 7 Days #28 tablet 10/25/18 The following prescriptions were given: Blood Pressure Kit Med,Large [Blood Pressure Monitor] 1 ea MC BID #1 kit Transmission Status: Pending to ARI [facility] RD Oxycodone HCl/Acetaminophen [Percocet 5-325] 1 - 2 tablet PO Q4H PRN PRN 7 Days #28 tablet PRN Reason: Moderate-Severe pain Transmission Status: Received by ARI MARSH RD Labetalol [Trandate (Beta Carmelo)] 300 mg PO BID #60 tab Transmission Status: Pending to ARI [facility]SH [facility] Follow-Up: Call to make an appointment with your doctor for an incision check in 1-2 weeks. You will also need a 6 week post- follow up appointment. Test results from this visit will be discussed in further detail at your follow- up appointment, if applicable. Please Follow Up With: Annia Engle MD - Call to make an appointment for an incision check in 1-2 [phone] When: You will need a post- check in 6 weeks. Primary Care Physician: Care Physician,No Primary [Primary Care Provider] -
[2018-10-25] MEDS: NIFEdipine 30 MG Tablet PO (18:56)
--- NOTE | 2018-10-25 20:47 | NURSING ---
2034 notified of elevated BP at 2026. Plan to recheck BP in 15min and if elevated start hypertensive protocol with 20mg Procardia PO
[2018-10-25] MEDS: Acetaminophen 500 MG Tablet 1000 MG PO (20:48)
[2018-10-25] MEDS: Labetalol 100 MG Tablet 300 MG PO (21:50)
[2018-10-26] MEDS: oxyCODONE 5 MG Tablet PO ×2 (03:10→10:27)
[2018-10-26 04:00] VITALS: BP 124/76; PULSE 71; RESP 16; TEMP 36.7
[2018-10-26] MEDS: Levothyroxine 150 MCG Tablet 300 MCG PO (04:08)
[2018-10-26] MEDS: Enoxaparin 40 MG/0.4 ML Syringe SC (06:00)
[2018-10-26 08:00] VITALS: BP 147/100; PULSE 83; RESP 16; TEMP 36.8; O2SAT 97
[2018-10-26] MEDS: Prenatal Vits Tablet 1 TABLET PO (08:28)
[2018-10-26] MEDS: NIFEdipine 30 MG Tablet PO (08:28)
[2018-10-26] MEDS: Labetalol 100 MG Tablet 300 MG PO (08:29)
[2018-10-26] MEDS: Acetaminophen 500 MG Tablet 1000 MG PO (09:08)
--- NOTE | 2018-10-26 09:22 | PCM.PN.OB ---
Patient Problems: Active and Suspected Problems (Last Reviewed 10/18/18 @ 10:20 by Val Thornton) Severe preeclampsia (Acute) Placental abruption in third trimester (Acute) Subjective: patient doing even better more energy ambulating oral pain control no CP SOB N V MONTES[facility] wanting to leave - Physical Exam General: Alert, Oriented x3 Abdomen: - - C/D/I Vital Signs Temp Pulse Resp BP Pulse Ox 98.3 F 83 16 147/100 H 97 10/26/18 08:00 10/26/18 08:00 10/26/18 08:00 10/26/18 08:00 10/26/18 08:00 Oxygen Flow Rate (L/min) 1 Oxygen Delivery Method Room Air Weight: 260 lb 5.855 oz Body Mass Index (BMI) 40.8 Intake and Output for Last 24 Hours 10/24/18 10/25/18 10/26/18 23:59 23:59 23:59 Intake Total 2169 / 2169 Output Total 1828 / 1828 Balance 341 / 341 Medical Necessity - Tobacco Use Smoking Status: Former smoker Assessment/Plan All Active Problems (Last Reviewed 10/18/18 @ 10:20 by Val Thornton) Severe preeclampsia (Acute) Placental abruption in third trimester (Acute) Proteinuria affecting in third trimester (Acute) anomaly (Acute) White coat syndrome with high blood pressure but without hypertension (Acute) (Acute) Uses marijuana (Acute) Thyroid cancer (Acute) Supervision of normal first (Acute) Nausea/vomiting in (Resolved) S/P Stat LTCS with severe preeclampsia and abruption POD 3 1. severe preeclampsia and complete abruption- patient underwent stat . S/P magnesium x 24 hours, labetalol 300mg BID and procardial 30mg XL improved control now. 2. acute renal insufficiency- proteinuria and CR recovering well, good urine output 3. routine postop care- ambulate, oral pain control 4. rubella immune 5. Rh positive dc home today
[2018-10-26 10:32] VITALS: BP 148/81; PULSE 84; RESP 16; TEMP 36.8; O2SAT 98
--- NOTE | 2018-10-26 10:51 | NURSING ---
pt discharged to home at this time, pt medicated with oxyir 10mgpo prior to discharge, family with pt at time of dc.
--- NOTE | 2018-10-26 14:23 | CASEMGMT ---
Social Work Labor and Delivery Referral to [facility] ([facility]) Veronica Willingham, intake forge shop supervisor. Referral due to substance exposed infant. Brief maternal and histories provided. -MIGUEL Ren, EMAIL CAMPAIGN MANAGER
== END 2018-10-26 10:40 | disposition home or self-care (01) | DRG 787 ==
LOC: WPOUT 14:27
PROVIDERS: Admitting Provider Obstetrics & Gynecology; Visit Provider Obstetrics & Gynecology
DX: O14.14 Severe pre-eclampsia complicating childbirth (principal); O26.833 Pregnancy related renal disease, third trimester; O45.8X3 Other premature separation of placenta, third trimester; O76 Abnormality in fetal heart rate and rhythm complicating labor and delivery; O69.81X0 Labor and delivery complicated by cord around neck, without compression, not applicable or unspecified; N28.89 Other specified disorders of kidney and ureter; Z3A.29 29 weeks gestation of pregnancy; Z37.0 Single live birth
CPT/HCPCS: 36415; 59050; 80053; 80307; 82565; 82570; 83615; 83735; 84156; 84450; 84460; 84550; 85027; 85384; 85610; 85730; 86850; 86900; J7120; A4216; J0702; J2405

== ENCOUNTER 2019-08-27 14:06 | Emergency (ER) | payer OTHER, SELFPAY ==
[2018-12-09 13:41] VITALS: BMI 40.8
[2019-08-27 14:07] VITALS: BP 142/83; PULSE 104; RESP 16; TEMP 38.8; O2SAT 95; BMI 39.1
--- NOTE | 2019-08-27 14:34 | RAD_ITS ---
STUDY: X-RAY CHEST REASON FOR EXAM: Female, 29 years old. cough, vomiting, fever TECHNIQUE: Single AP portable view of the chest. COMPARISON: None. FINDINGS: Left lower lung linear increased opacity. There is no demonstrated pleural abnormality. Normal size heart. Normal mediastinum and minda. Normal visualized pulmonary arteries. Normal visualized aortic arch and descending thoracic aorta. Normal visualized thoracic spine. Normal visualized ribs, clavicles, and shoulders. There is no demonstrated abnormality of the visualized soft tissue structures of the upper abdomen. RAD/Chest 1 View (Portable) IMPRESSION: Left lower lung atelectasis. Electronically Signed: Bartolo Dwyer MD at 15:45 EDT , Service support ,
--- NOTE | 2019-08-27 14:36 | ED.VISSUMM ---
- ER Visit Summary Date of Service: 08/27/19 Chief Complaint: Fever, nausea, vomiting, diarrhea History of Present Illness: The patient is a 29 F who presents with fever, nausea, vomiting, diarrhea for the past 3 days. Patient states it is been constant. Patient states she is unable to keep anything down. Patient admits to some urinary frequency but denies any dysuria or hematuria. Patient denies any hematemesis or coffee-ground emesis. Patient denies any melena or hematochezia. Patient states her diarrhea has been watery. Patient states that when she went to work today they checked her temperature and noted she had a fever. Patient states her boss told her to come to the emergency department. Physical Examination: Vital signs are stable. Patient is febrile here with a temperature of 101.8. Patient is in no acute distress. Oral mucosa is pink and moist. Neck is supple. Trachea is midline. There is no JVD. Heart was regular rate and rhythm. Lungs showed few scattered rhonchi. There is good respiratory effort. Abdomen is soft. Bowel sounds are normal. There is no tenderness. Cranial nerves II through XII are intact. There are no focal motor or sensory deficits noted. Extremities are intact. There is mild lower extremity tenderness. There is no edema. Test Results: CBC showed normal white blood cell count however, there were 36 segs 28 bands, and 28 lymphocytes. Comprehensive metabolic profile showed an elevated bilirubin of 2.9, alk phos of 193, ALT of 3520, and AST of 4649. Urinalysis showed leukocyte esterase of 500 with positive nitrates. Occult blood was 250, ketones were 150. There are 25-50 white blood cells and 25-50 red blood cells with 0-5 epithelial cells 1+ bacteria. Serum hCG was negative. Portable chest x-ray shows left basilar atelectasis. This was interpreted by the radiologist and myself. Emergency Department Course and Treatment: Patient was given Tylenol and IV fluids here. Patient was also given a dose of Zofran. Patient was feeling better on reevaluation. Patient was advised of her results. Patient states that her boyfriend recently tested positive for hepatitis A. Patient states that they have been eating out a lot recently. Patient was given a prescription for Macrobid. Patient was instructed to drink plenty of fluids. Patient was referred to a primary care physician for follow-up care in 5 to 7 days. Disposition: Discharge home Impression: 1. Urinary tract infection 2. Hepatitis This note was generated with 3D Forms dictation software. It may contain incorrect words, spelling, and punctuation that were not noted in review of the chart prior to signing ED Disposition - Plan for ED Patient: Disposition: Home or Assisted Living Diagnosis: Urinary tract infection, Hepatitis Instructions: ED CYSTITIS Female Adult, ED Hepatitis Cause Unknown Test Pending Prescriptions: Nitrofurantoin Macrocrystals [Macrobid] 100 mg PO Q12 #14 cap Prescription Printed Referrals: Care Physician,No Primary [Primary Care Provider] - Vanessa Loo MD [STAFF PHYSICIAN] - 3-5 Days
[2019-08-27] MEDS: Ondansetron 4 MG/2 ML Vial IV (14:52)
[2019-08-27] MEDS: Acetaminophen 500 MG Tablet 1000 MG PO (14:53)
[2019-08-27] MEDS: 0.9% Normal Saline 1,000 ML 1000 ML IV (14:53)
[2019-08-27 15:03] LABS: Hematocrit 45.2 % (37-47); Hemoglobin 15.2 g/dL (12.0-15.0); Mean Corp Hgb Conc 33.6 g/dL (32-36); Mean Corpuscular Hgb 29.9 pg (27.0-32.0); Mean Corpuscular Volume 88.8 fL (81-99); Mean Platelet Vol. 10.6 fl (6.2-12.0); POSITIVE MORPHOLOGY YES; Platelet Count 177 K/mm3 (150-450); RBC Distribution Width CV 12.4 % (11.6-14.6); Red Blood Count 5.09 M/mm3 (4.2-5.4)
[2019-08-27 15:27] LABS: Internal QC Validated? YES +Cl - CLEAR BKGD; Pregnancy, Serum, hCG Quali. NEGATIVE Negative
[2019-08-27 15:50] LABS: ALB/GLOB Ratio 1.2 RATIO (0.9-2.4); AST(SGOT) 4649 U/L (15-37); Alanine Aminotransfer ALT/SGPT 3520 U/L (13-56); Albumin, Serum 4.1 g/dL (3.2-5.0); Alkaline Phosphatase 193 U/L (45-117); Anion Gap 7 (5-15); BUN 9 mg/dL (7-18); BUN/Creat Ratio 9.8 RATIO (10-20); Calcium,Total 8.1 mg/dL (8.5-10.1); Chloride 101 mmol/L (98-107); Creatinine, Serum 0.92 mg/dL (0.55-1.02); EST Glomerular Filtration Rate 77 mL/min (>60); Est Glom Filt Rate - Afr Amer 94 mL/min (>60); Estimated Creatinine Clearance 88.53 ml/min; Globulin 3.4 g/dL (2.2-4.2); Glucose 102 mg/dL (74-106); Lipase 46 U/L (73-393); Potassium 3.4 mmol/L (3.5-5.1); Protein, Total 7.5 g/dL (6.4-8.2); Sodium Level 136 mmol/L (136-145)
[2019-08-27 16:04] LABS: Differential Indicated MANUAL DIFF
[2019-08-27 16:05] VITALS: BP 127/74; PULSE 96; RESP 16; TEMP 36.9; O2SAT 97
[2019-08-27 16:05] LABS: Lymphocyte 28 % (19-41); Neutrophil-Band 28 % (0-5); Neutrophil-Segmented 36 % (47-70); Total Cells Counted 100 (MANUAL DIFF)
[2019-08-27 16:05] LABS: Mucous, Urine 0 SEEN /hpf (<or=2+)
[2019-08-27 16:06] LABS: Atypical Lymphocyte 1+ %; Eosinophil 4 % (0-5); Monocyte 4 % (0-10); Platelet Estimate ADEQUATE (ADEQ); Reactive Lymphocyte 1+; Red Cell Morphology NORM C+C NORMAL (NORM C&C)
[2019-08-27 16:08] LABS: Absolute Neutrophil Count 3.2 X10^3/uL (2.0-7.7)
[2019-08-27 16:08] LABS: Color, Urine Yellow (Yellow); Glucose, Dipstick 1000 mg/dl (Normal); Leukocyte Esterase-Dipstick 500 /ul (Negative); Nitrite-Dipstick Positive (Negative); Occult Blood-Urine 250 /ul (Negative); Protein-Dipstick 500 mg/dl (Negative); Urine Bilirubin Dipstick 6 mg/dL (Negative); Urine Clarity Sl. Cloudy (Clear); Urine Urobilinogen 12 mg/dl (Normal)
[2019-08-27 16:09] LABS: Scan Smear per Review Criteria MANUAL DIFF
[2019-08-27 16:11] LABS: Ketone-Dipstick 150 mg/dl (Negative)
[2019-08-27 16:14] LABS: Bacteria 1+ /hpf (None Seen); Red Blood Cells-Urine 25-50 SEEN /hpf (0-5); Squamous Epithelial Cells - UA 0-5 SEEN /hpf (5-10); White Blood Cells 25-50 SEEN /hpf (0-5)
[2019-08-27 16:53] VITALS: BP 134/74; PULSE 81; RESP 16; O2SAT 97
[2019-08-28 10:30] LABS: Pathologist Review Reviewed
[2019-08-29 04:06] LABS: HEPATITIS B SURFACE AG Negative (Negative); Hepatitis A IgM Antibody Positive (Negative); Hepatitis B Core AB IgM Negative (Negative)
[2019-08-29 15:45] LABS: Hep C Antibodies <0.1 s/co ratio (0.0-0.9)
== END 2019-08-27 17:18 | disposition home or self-care (01) ==
PROVIDERS: Emergency Provider Emergency Medicine
DX: N39.0 Urinary tract infection, site not specified (principal); K75.9 Inflammatory liver disease, unspecified; E66.9 Obesity, unspecified
CPT/HCPCS: 71045; 80053; 80074; 81001; 83690; 84703; 85025; 96361; 96374; 99284; J7030; A4216; J2405

== ENCOUNTER → 2019-09-08 | Outpatient (CLI) | payer OTHER, SELFPAY ==
[2019-08-27 14:07] VITALS: BMI 39.1
[2019-09-08 13:13] LABS: Hemoglobin A1c 5.6 % (4.2-6.3)
[2019-09-08 13:42] LABS: ALB/GLOB Ratio 0.7 RATIO (0.9-2.4); AST(SGOT) 135 U/L (15-37); Alanine Aminotransfer ALT/SGPT 570 U/L (13-56); Albumin, Serum 3.4 g/dL (3.2-5.0); Alkaline Phosphatase 288 U/L (45-117); Anion Gap 7 (5-15); BUN 12 mg/dL (7-18); BUN/Creat Ratio 14.2 RATIO (10-20); Bilirubin, Direct 1.34 mg/dL (0.00-0.30); Calcium,Total 8.6 mg/dL (8.5-10.1); Chloride 104 mmol/L (98-107); Creatinine, Serum 0.85 mg/dL (0.55-1.02); EST Glomerular Filtration Rate 85 mL/min (>60); Est Glom Filt Rate - Afr Amer 102 mL/min (>60); Free T3 0.8 pg/mL (2.18-3.98); Globulin 4.9 g/dL (2.2-4.2); Glucose 98 mg/dL (74-106); Potassium 4.2 mmol/L (3.5-5.1); Protein, Total 8.3 g/dL (6.4-8.2); Sodium Level 135 mmol/L (136-145); T4 Free Direct 0.27 ng/dL (0.76-1.46)
[2019-09-08 13:51] LABS: Hepatitis C Antibody Non-Reactive (Nonreactive)
[2019-09-09 05:07] LABS: HEPATITIS B SURFACE AG Negative (Negative); Hepatitis A IgM Antibody Positive (Negative); Hepatitis B Core AB IgM Negative (Negative)
[2019-09-09 09:53] LABS: Hep C Antibodies <0.1 s/co ratio (0.0-0.9)
== END | disposition home or self-care (01) ==
LOC: MTLAB 10:35
PROVIDERS: PCP Nurse Practitioner; Referring Provider Nurse Practitioner; Visit Provider Nurse Practitioner
DX: B15.9 Hepatitis A without hepatic coma (principal); E89.0 Postprocedural hypothyroidism; R74.8 Abnormal levels of other serum enzymes; R81 Glycosuria
CPT/HCPCS: 36415; 80053; 80074; 82248; 83036; 84439; 84443; 84481; 86803

== ENCOUNTER → 2019-10-06 | Outpatient (CLI) | payer OTHER, SELFPAY ==
[2019-10-06 11:41] VITALS: BMI 39.1
[2019-10-06 15:36] LABS: AST(SGOT) 32 U/L (15-37); Alanine Aminotransfer ALT/SGPT 55 U/L (13-56); Albumin, Serum 3.9 g/dL (3.2-5.0); Alkaline Phosphatase 78 U/L (45-117); Anion Gap 8 (5-15); BUN 12 mg/dL (7-18); BUN/Creat Ratio 17.2 RATIO (10-20); Calcium,Total 8.8 mg/dL (8.5-10.1); Chloride 108 mmol/L (98-107); EST Glomerular Filtration Rate 106 mL/min (>60); Est Glom Filt Rate - Afr Amer 129 mL/min (>60); Glucose 88 mg/dL (74-106); Protein, Total 7.9 g/dL (6.4-8.2); Sodium Level 140 mmol/L (136-145); T4 Free Direct 2.18 ng/dL (0.76-1.46); Thyroid Stim Hormone (TSH) 0.82 uIU/mL (0.358-3.74)
[2019-10-14 12:58] LABS: Anti-Thyroglobulin AB 1.4 IU/mL (0.0-0.9); Thyroglobulin RIA < 2.0 ng/mL (.)
== END | disposition home or self-care (01) ==
LOC: BIMLAB 11:56
PROVIDERS: PCP Nurse Practitioner; Referring Provider Internal Medicine Endocrinology, Diabetes & Metabolism; Visit Provider Internal Medicine Endocrinology, Diabetes & Metabolism
DX: B15.9 Hepatitis A without hepatic coma (principal); C73 Malignant neoplasm of thyroid gland; E89.0 Postprocedural hypothyroidism
CPT/HCPCS: 36415; 80053; 84432; 84439; 84443; 86800

== ENCOUNTER → 2019-12-29 | Outpatient (CLI) | payer BC, SELFPAY ==
[2019-10-06 11:41] VITALS: BMI 39.1
[2019-12-29 17:32] LABS: Thyroid Stim Hormone (TSH) 0.17 uIU/mL (0.358-3.74)
== END | disposition home or self-care (01) ==
LOC: BIMLAB 15:20
PROVIDERS: PCP Nurse Practitioner; Referring Provider Internal Medicine Endocrinology, Diabetes & Metabolism; Visit Provider Internal Medicine Endocrinology, Diabetes & Metabolism
DX: E89.0 Postprocedural hypothyroidism (principal)
CPT/HCPCS: 36415; 84439; 84443

== ENCOUNTER → 2020-07-08 09:38 | Outpatient (CLI) | payer BC, SELFPAY ==
[2020-07-08 09:09] VITALS: BMI 38.3
[2020-07-08 12:51] LABS: T4 Free Direct 1.46 ng/dL (0.76-1.46)
[2020-07-20 08:55] LABS: Anti-Thyroglobulin AB 2.1 IU/mL (0.0-0.9); Thyroglobulin RIA < 2.0 ng/mL (.)
== END ==
LOC: BIMLAB 09:41
PROVIDERS: PCP Nurse Practitioner; Visit Provider Internal Medicine Endocrinology, Diabetes & Metabolism
DX: C73 Malignant neoplasm of thyroid gland (principal); E89.0 Postprocedural hypothyroidism
CPT/HCPCS: 36415; 84432; 84439; 84443; 86800

== ENCOUNTER → 2021-03-10 13:51 | Outpatient (CLI) | payer MEDICAID, SELFPAY | PROVIDERS: PCP Nurse Practitioner; Referring Provider Internal Medicine Endocrinology, Diabetes & Metabolism; Visit Provider Internal Medicine Endocrinology, Diabetes & Metabolism | DX: E89.0 Postprocedural hypothyroidism (principal) | CPT/HCPCS: 36415; 84439; 84443 ==

== ENCOUNTER → 2021-04-08 12:27 | Outpatient (CLI) | payer MEDICAID, SELFPAY ==
[2021-04-08 15:37] LABS: T4 Free Direct 1.89 ng/dL (0.76-1.46); Thyroid Stim Hormone (TSH) 0.49 uIU/mL (0.358-3.74)
[2021-04-16 16:42] LABS: Anti-Thyroglobulin AB 1.3 IU/mL (0.0-0.9); Thyroglobulin RIA < 2.0 ng/mL (.)
== END ==
PROVIDERS: PCP Nurse Practitioner; Referring Provider Internal Medicine Endocrinology, Diabetes & Metabolism; Visit Provider Internal Medicine Endocrinology, Diabetes & Metabolism
DX: C73 Malignant neoplasm of thyroid gland (principal); E89.0 Postprocedural hypothyroidism
CPT/HCPCS: 36415; 84432; 84439; 84443; 86800

== ENCOUNTER → 2021-04-14 15:36 | Outpatient (CLI) | payer MEDICAID, SELFPAY ==
--- NOTE | 2021-04-14 15:39 | US_ITS ---
STUDY: THYROID ULTRASOUND REASON FOR EXAM: Female, 31 years old. Screen for adenopathy. Patient is status post thyroidectomy. TECHNIQUE: Ultrasound evaluation of the thyroid was performed with real-time and static chun-scale imaging. COMPARISON: None. FINDINGS: RIGHT LOBE: The right lobe of the thyroid gland has been resected. LEFT LOBE: The left lobe of the thyroid gland has been resected. Multiple submandibular lymph nodes are seen bilaterally. The largest on the right side measures 1.8 size by 1.3 cm x 0.8 cm. The largest on the left side measures 2.3 cm x 0.4 sinus by 0.7 cm. US/Thyroid IMPRESSION: Status post resection of the thyroid. Submandibular lymphadenopathy as described. Correlation with the CT scan of the neck is recommended for further evaluation. Electronically Signed: Enrique Gomez MD at 10:50 EST , Service support ,
== END ==
PROVIDERS: PCP Nurse Practitioner; Referring Provider Internal Medicine Endocrinology, Diabetes & Metabolism; Visit Provider Internal Medicine Endocrinology, Diabetes & Metabolism
DX: C73 Malignant neoplasm of thyroid gland (principal); E89.0 Postprocedural hypothyroidism
CPT/HCPCS: 76536

== ENCOUNTER 2021-07-11 09:50 | Outpatient (CLI) | payer MEDICAID, SELFPAY ==
[2021-07-11 11:52] LABS: Vitamin D,25 Hydroxy 17.8 ng/mL
[2021-07-11 12:15] LABS: AST(SGOT) 20 U/L (15-37); Alanine Aminotransfer ALT/SGPT 26 U/L (13-56); Albumin, Serum 3.7 g/dL (3.2-5.0); Alkaline Phosphatase 66 U/L (45-117); Anion Gap 4 (5-15); BUN 10 mg/dL (7-18); BUN/Creat Ratio 13.4 RATIO (10-20); Calcium,Total 8.7 mg/dL (8.5-10.1); Chloride 108 mmol/L (98-107); Creatinine, Serum 0.75 mg/dL (0.55-1.02); EST Glomerular Filtration Rate 97 mL/min (>60); Est Glom Filt Rate - Afr Amer 117 mL/min (>60); Globulin 3.6 g/dL (2.2-4.2); Glucose 89 mg/dL (74-106); Potassium 4.1 mmol/L (3.5-5.1); Protein, Total 7.3 g/dL (6.4-8.2); Sodium Level 138 mmol/L (136-145); T4 Free Direct 1.27 ng/dL (0.76-1.46); Thyroid Stim Hormone (TSH) 3.24 uIU/mL (0.358-3.74)
[2021-07-27 16:28] LABS: Anti-Thyroglobulin AB 1.3 IU/mL (0.0-0.9); Thyroglobulin RIA < 2.0 ng/mL (.)
== END 2021-07-11 23:59 | disposition home or self-care (01) ==
PROVIDERS: PCP Nurse Practitioner; Referring Provider Internal Medicine Endocrinology, Diabetes & Metabolism; Visit Provider Internal Medicine Endocrinology, Diabetes & Metabolism
DX: C73 Malignant neoplasm of thyroid gland (principal); E89.0 Postprocedural hypothyroidism; E55.9 Vitamin D deficiency, unspecified
CPT/HCPCS: 36415; 80053; 82306; 84432; 84439; 84443; 86800

== ENCOUNTER → 2021-09-10 | Outpatient (CLI) | payer MEDICAID, SELFPAY | END | disposition home or self-care (01) | LOC: BIMLAB 13:55 | PROVIDERS: PCP Nurse Practitioner; Referring Provider Nurse Practitioner Family; Visit Provider Nurse Practitioner Family | DX: E89.0 Postprocedural hypothyroidism (principal) | CPT/HCPCS: 36415; 84439; 84443 ==

== ENCOUNTER → 2021-09-12 | Outpatient (CLI) | payer MEDICAID, SELFPAY ==
[2021-09-11 14:14] LABS: Amphetamine Urine VISTA NEGATIVE (<1000 ng/mL); Barbiturate Urine VISTA NEGATIVE (< 200 ng/mL); Benzodiazepine Urine VISTA NEGATIVE (< 200 ng/mL); Cocaine Urine VISTA NEGATIVE (< 300 ng/mL); Ecstacy Urine VISTA NEGATIVE (< 500 ng/mL); Methadone Urine VISTA NEGATIVE (< 300 ng/mL); PCP Urine VISTA NEGATIVE (< 25 ng/mL); THC Urine VISTA POSITIVE (< 50 ng/mL); Vista UDS pH Range 5
[2021-09-15 22:06] LABS: Chlamydia By Nucleic Acid AMP Negative (Negative)
[2021-09-16 16:44] LABS: Gonococcus By Nucleic Acid AMP Negative (Negative)
[2021-09-17 20:23] LABS: HPV APTIMA, High Risk Negative (Negative)
== END | disposition home or self-care (01) ==
LOC: LABSPEC 06:37
PROVIDERS: PCP Nurse Practitioner; Referring Provider Obstetrics & Gynecology; Visit Provider Obstetrics & Gynecology
DX: O09.90 Supervision of high risk pregnancy, unspecified, unspecified trimester (principal)
CPT/HCPCS: 80307; 87086; 87088; 87491; 87591; 87624; 88175; G0145

== ENCOUNTER → 2021-10-07 | Outpatient (CLI) | payer MEDICAID, SELFPAY ==
[2021-10-07 15:22] LABS: T4 Free Direct 1.23 ng/dL (0.76-1.46)
[2021-10-07 16:36] LABS: Absolute Lymphocyte Count 2.29 X10^3/uL (0.83-4.51); Absolute Neutrophil Count 8.5 X10^3/uL (2.0-7.7); Basophil# 0.05 X10^3/uL; Basophil% 0.4 % (0-1); Eosinophil# 0.08 X10^3/uL; Eosinophils% 0.7 % (0-5); Hematocrit 36.4 % (37-47); Hemoglobin 12.7 g/dL (12.0-15.0); Lymphocyte # 2.29 X10^3/ul (0.83-4.51); Lymphocyte % 19.5 % (19-41); Mean Corp Hgb Conc 34.9 g/dL (32-36); Mean Corpuscular Hgb 30.7 pg (27.0-32.0); Mean Corpuscular Volume 87.9 fL (81-99); Mean Platelet Vol. 10.9 fl (6.2-12.0); Monocyte# 0.73 X10^3/uL; Monocyte% 6.2 % (0-10); NRBC Flagged by Analyzer 0 % (0-5); Neutrophil # 8.52 X10^3/uL (2.7-7.7); Neutrophil % 72.7 % (47-70); Platelet Count 359 K/mm3 (150-450); RBC Distribution Width CV 12.2 % (11.6-14.6); RBC Distribution Width SD 39.5 fl (35.1-43.9); Red Blood Count 4.14 M/mm3 (4.2-5.4); White Blood Count 11.7 K/mm3 (4.4-11.0)
[2021-10-07 16:49] LABS: AST(SGOT) 16 U/L (15-37); Alanine Aminotransfer ALT/SGPT 32 U/L (13-56); Albumin, Serum 3.3 g/dL (3.2-5.0); Alkaline Phosphatase 46 U/L (45-117); Anion Gap 7 (5-15); BUN 7 mg/dL (7-18); BUN/Creat Ratio 11.2 RATIO (10-20); Calcium,Total 8.5 mg/dL (8.5-10.1); Chloride 107 mmol/L (98-107); Creatinine, Serum 0.63 mg/dL (0.55-1.02); EST Glomerular Filtration Rate 118 mL/min (>60); Est Glom Filt Rate - Afr Amer 143 mL/min (>60); Globulin 3.4 g/dL (2.2-4.2); Glucose 124 mg/dL (74-106); Glucose Challenge Gest 1H 50g 124 mg/dL (70-140); Potassium 3.5 mmol/L (3.5-5.1); Protein, Total 6.7 g/dL (6.4-8.2); Sodium Level 138 mmol/L (136-145)
[2021-10-07 16:56] LABS: Protein, Urine (Random) < 6.0 mg/dL (<11.9)
[2021-10-07 17:39] LABS: HIV - WCH Non-Reactive (Nonreactive); Hepatitis B Surface Antigen Non-Reactive (Nonreactive); Hepatitis C Antibody Non-Reactive (Nonreactive); Rubella IgG Reactive (Nonreactive); Syphilis Antibodies Non-reactive
[2021-10-10 04:07] LABS: Dilute Prothrombin Time (dPT) 34.3 sec (0.0-47.6); Dilute Russell Viper Venom 32.2 sec (0.0-47.0); PTT-LA 34.1 sec (0.0-51.9); Thrombin Time 16.7 sec (0.0-23.0); dPT Confirm Ratio 0.99 Ratio (0.00-1.34)
[2021-10-10 08:52] LABS: Anti-Cardiolipin Ab, IgA, Qn < 9 APL U/mL (0-11); Anti-Cardiolipin Ab, IgG, Qn < 9 GPL U/mL (0-14); Anti-Cardiolipin Ab, IgM, Qn 10 MPL U/mL (0-12); Beta-2-Glycoprotein I IgA <9 (0-25); Beta-2-Glycoprotein I IgG <9 (0-20); Beta-2-Glycoprotein I IgM <9 (0-32); Interpretation Comment: (.)
== END | disposition home or self-care (01) ==
LOC: BIMLAB 11:59
PROVIDERS: Obstetrics & Gynecology; PCP Nurse Practitioner; Visit Provider Internal Medicine Endocrinology, Diabetes & Metabolism
DX: O99.280 Endocrine, nutritional and metabolic diseases complicating pregnancy, unspecified trimester (principal); E89.0 Postprocedural hypothyroidism; N96 Recurrent pregnancy loss; Z87.59 Personal history of other complications of pregnancy, childbirth and the puerperium
CPT/HCPCS: 36415; 80053; 82570; 82950; 84156; 84439; 84443; 85025; 86146; 86147; 86703; 86762; 86780; 86803; 86850; 86900; 86901; 87340

== ENCOUNTER → 2021-10-10 | Outpatient (CLI) | payer MEDICAID, SELFPAY ==
[2021-10-10 16:07] LABS: NATERA MAILED SPECIMEN
== END | disposition home or self-care (01) ==
LOC: LAB 14:39
PROVIDERS: PCP Nurse Practitioner; Visit Provider Obstetrics & Gynecology
DX: Z34.82 Encounter for supervision of other normal pregnancy, second trimester (principal)

== ENCOUNTER → 2021-11-18 | Outpatient (CLI) | payer MEDICAID, SELFPAY ==
[2021-11-18 12:39] LABS: T4 Free Direct 1.36 ng/dL (0.76-1.46); Thyroid Stim Hormone (TSH) 2.14 uIU/mL (0.358-3.74)
[2021-11-20 20:43] LABS: Anti-Thyroglobulin AB < 1.0 IU/mL (0.0-0.9); Thyroglobulin, Serum Qt. < 0.1 ng/mL (1.5-38.5)
== END | disposition home or self-care (01) ==
LOC: BIMLAB 10:33
PROVIDERS: PCP Nurse Practitioner; Referring Provider Internal Medicine Endocrinology, Diabetes & Metabolism; Visit Provider Internal Medicine Endocrinology, Diabetes & Metabolism
DX: C73 Malignant neoplasm of thyroid gland (principal); E89.0 Postprocedural hypothyroidism
CPT/HCPCS: 36415; 84432; 84439; 84443; 86800

== ENCOUNTER → 2021-12-01 | Outpatient (CLI) | payer MEDICAID, SELFPAY ==
[2021-12-01 14:02] LABS: Amphetamine Urine VISTA NEGATIVE (<1000 ng/mL); Barbiturate Urine VISTA NEGATIVE (< 200 ng/mL); Benzodiazepine Urine VISTA NEGATIVE (< 200 ng/mL); Cocaine Urine VISTA NEGATIVE (< 300 ng/mL); Ecstacy Urine VISTA NEGATIVE (< 500 ng/mL); Methadone Urine VISTA NEGATIVE (< 300 ng/mL); PCP Urine VISTA NEGATIVE (< 25 ng/mL); THC Urine VISTA POSITIVE (< 50 ng/mL); Vista UDS pH Range 6
== END | disposition home or self-care (01) ==
LOC: LABSPEC 12-02 09:11
PROVIDERS: Referring Provider Nurse Practitioner Women's Health; Visit Provider Nurse Practitioner Women's Health
DX: F12.10 Cannabis abuse, uncomplicated (principal)
CPT/HCPCS: 80307

== ENCOUNTER → 2022-01-26 | Outpatient (CLI) | payer MEDICAID, SELFPAY ==
[2022-01-26 15:48] LABS: T4 Free Direct 1.19 ng/dL (0.76-1.46); Thyroid Stim Hormone (TSH) 3.82 uIU/mL (0.358-3.74)
== END | disposition home or self-care (01) ==
LOC: BIMLAB 13:16
PROVIDERS: Referring Provider Internal Medicine Endocrinology, Diabetes & Metabolism; Visit Provider Internal Medicine Endocrinology, Diabetes & Metabolism
DX: E89.0 Postprocedural hypothyroidism (principal)
CPT/HCPCS: 36415; 84439; 84443

== ENCOUNTER → 2022-01-28 | Outpatient (CLI) | payer MEDICAID, SELFPAY ==
[2022-01-28 16:38] LABS: Absolute Lymphocyte Count 1.24 X10^3/uL (0.83-4.51); Absolute Neutrophil Count 7.3 X10^3/uL (2.0-7.7); Basophil# 0.04 X10^3/uL; Basophil% 0.4 % (0-1); Eosinophil# 0.16 X10^3/uL; Eosinophils% 1.7 % (0-5); Hematocrit 34.5 % (37-47); Hemoglobin 11.8 g/dL (12.0-15.0); Lymphocyte # 1.24 X10^3/ul (0.83-4.51); Lymphocyte % 13.1 % (19-41); Mean Corp Hgb Conc 34.2 g/dL (32-36); Mean Corpuscular Hgb 31.6 pg (27.0-32.0); Mean Corpuscular Volume 92.5 fL (81-99); Mean Platelet Vol. 10.7 fl (6.2-12.0); Monocyte# 0.66 X10^3/uL; NRBC Flagged by Analyzer 0 % (0-5); Neutrophil # 7.31 X10^3/uL (2.7-7.7); Platelet Count 280 K/mm3 (150-450); RBC Distribution Width CV 12.3 % (11.6-14.6); RBC Distribution Width SD 41.6 fl (35.1-43.9); Red Blood Count 3.73 M/mm3 (4.2-5.4); White Blood Count 9.5 K/mm3 (4.4-11.0)
[2022-01-28 16:44] LABS: Glucose Challenge Gest 1H 50g 133 mg/dL (70-140)
== END | disposition home or self-care (01) ==
LOC: BIMLAB 14:37
PROVIDERS: Referring Provider Obstetrics & Gynecology; Visit Provider Obstetrics & Gynecology
DX: Z34.92 Encounter for supervision of normal pregnancy, unspecified, second trimester (principal); Z3A.24 24 weeks gestation of pregnancy
CPT/HCPCS: 36415; 82950; 85025

== ENCOUNTER → 2022-02-12 | Outpatient (CLI) | payer MEDICAID, SELFPAY ==
[2022-02-12 16:21] LABS: Amphetamine Urine VISTA NEGATIVE (<1000 ng/mL); Barbiturate Urine VISTA NEGATIVE (< 200 ng/mL); Benzodiazepine Urine VISTA NEGATIVE (< 200 ng/mL); Cocaine Urine VISTA NEGATIVE (< 300 ng/mL); Ecstacy Urine VISTA NEGATIVE (< 500 ng/mL); Methadone Urine VISTA NEGATIVE (< 300 ng/mL); PCP Urine VISTA NEGATIVE (< 25 ng/mL); THC Urine VISTA POSITIVE (< 50 ng/mL); Vista UDS pH Range 7
== END | disposition home or self-care (01) ==
LOC: LABSPEC 14:39
PROVIDERS: Visit Provider Obstetrics & Gynecology
DX: F12.10 Cannabis abuse, uncomplicated (principal)
CPT/HCPCS: 80307

== ENCOUNTER → 2022-02-27 | Outpatient (CLI) | payer MEDICAID, SELFPAY ==
[2022-02-27 13:08] LABS: T4 Free Direct 1.49 ng/dL (0.76-1.46); Thyroid Stim Hormone (TSH) 0.52 uIU/mL (0.358-3.74)
== END | disposition home or self-care (01) ==
LOC: BIMLAB 11:16
PROVIDERS: Referring Provider Internal Medicine Endocrinology, Diabetes & Metabolism; Visit Provider Internal Medicine Endocrinology, Diabetes & Metabolism
DX: E89.0 Postprocedural hypothyroidism (principal)
CPT/HCPCS: 36415; 84439; 84443

== ENCOUNTER → 2022-03-20 | Outpatient (CLI) | payer MEDICAID, SELFPAY | END | disposition home or self-care (01) | LOC: LABSPEC 11:30 | PROVIDERS: Referring Provider Obstetrics & Gynecology; Visit Provider Obstetrics & Gynecology | DX: O09.90 Supervision of high risk pregnancy, unspecified, unspecified trimester (principal) | CPT/HCPCS: 87077; 87081; 87186 ==

== ENCOUNTER 2022-04-10 10:38 | Inpatient (IN) | payer MEDICAID, SELFPAY ==
[2022-04-10] VITALS (18 sets, daily range): BP systolic 114–135; BP diastolic 56–87; PULSE 61–87; RESP 14–18; TEMP 36.3–37; O2SAT 93–99; BMI 38.2
--- NOTE | 2022-04-10 02:25 | HP.PCM.OB_ITS ---
HPI - General General Date of Admission: 04/10/22 HPI Narrative JASE SANDS, is a 32 F who presents for RLTCS, history of previous cs for preeclampsia and abruption. Maternal Data Information JAZMINE Calculator Estimated Delivery Date Method Current WG Current Estimate 04/16/22 LMP (Certain) 39w [address]d [facility] Medical History (Updated 04/10/22 @ 10:35 by Jessy Damon) Hepatitis A Placenta previa Positive GBS test Postoperative primary hypothyroidism Pre-eclampsia Thyroid cancer Home Medications vitamin#30 30 mg iron-10 mg iron-folic acid 1 mg-omg3 capsule 1 cap PO DAILY Check with primary doctor 09/11/21 [History Last Taken Unknown] aspirin 81 mg tablet,delayed release 81 mg PO DAILY Check with primary doctor 11/06/21 [History Last Taken Unknown] levothyroxine 200 mcg tablet 200 mcg PO .COMPLEX Check with primary doctor 04/10/22 [History Last Taken Unknown] Allergy/AdvReac Type Severity Reaction Status Date / Time Bleach (Sodium Hypochlorite) Allergy Anaphylaxis Verified 04/10/22 10:29 Family History Grandmother CVA (cerebral vascular accident) Heart disease Grandfather Diabetes Aunt Breast cancer Ovarian cancer Surgical History delivery delivered lymphadenectomy (~2016) S/P thyroidectomy (~2014) Social History Smoking Status: Current some day smoker alcohol intake: never substance use type: marijuana caffeine: Yes what type of physical activity do you participate in: none seatbelt use: always do you feel safe at home: Yes additional social history: Pkjfjxnsn-Mghtb-Zkqwnjwsj 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 Date Name GA/Weeks Outcome Route Bth Weight Infant Gen Labor Lgth Anesthesia Del Locatn Provider FOB 10/23/18 Dhaval 29 live - Male gene ral [facility] janetony Delivery Date: 10/23/18 Last Updated by: Carmela Resendiz Severe Preeclampsia Complete abruption Visit Details Expected Delivery Route/Plan RLTCS planned Plans . Covid status: discussed Flu vaccine: given Tdap vaccine: given Rhogam: [na LARC form signed: yes movement and labor precautions reviewed. Problem list reviewed and updated with the most current plan of care details and appropriate orders placed. Relevant counseling for the gestational age provided. Continue routine care and follow up unless otherwise noted in visit notes/problem list details OB Flowsheet Initial Weight: Not Recorded Date -?-?-?-?-?-?-?-?-?-?-?-?- EGA Weight BP Urine Prot -?-?-?-?-?-?-?-?-?-?-?-?- Glucose FHR FuHt Pres Dilation -?-?-?-?-?-?-?-?-?-?-?-?- Effaced St Visit Note 09/11/21 -?-?-?-?-?-?-?-?-?-?-?-?- 9w 0d 235 lb 126/86 -?-?-?-?-?-?-?-?-?-?-?-?- 150 -?-?-?-?-?-?-?-?-?-?-?-?- SM_ CRL cons wit h LMP 10/10/21 -?-?-?-?-?-?-?-?-?-?-?-?- 13w 1d 234 lb 2 oz 118/70 Nega tive -?-?-?-?-?-?-?-?-?-?-?-?- Negative 147 -?-?-?-?-?-?-?-?-?-?-?-?- JV- CRL measured today consistent with LMP. normal early glucola. wants NIPT. 11/06/21 -?-?-?-?-?-?-?-?-?-?-?-?- 17w 0d 233 lb 4 oz 110/70 -?-?-?-?-?-?-?-?-?-?-?-?- 145 -?-?-?-?-?-?-?-?-?-?-?-?- JV- no lof, vagi nal bleeding, or cramping. anatomy ultrasound in 2 weeks. 12/01/21 -?-?-?-?-?-?-?-?-?-?-?-?- 20w 4d 232 lb 2 oz 110/68 Nega tive -?-?-?-?-?-?-?-?-?-?-?-?- Negative 152 -?-?-?-?-?-?-?-?-?-?-?-?- -No Vb, lof. G ood FM. US to recheck placenta is 12/1112/29/21 -?-?-?-?-?-?-?-?-?-?-?-?- 24w 4d 237 lb 120/70 -?-?-?-?-?-?-?-?-?-?-?-?- 150 24 -?-?-?-?-?-?-?-?-?-?-?-?- - no vb lof go od fm no regular ctx 01/27/22 -?-?-?-?-?-?-?-?-?-?-?-?- 28w 5d 239 lb 128/64 Negative -?-?-?-?-?-?-?-?-?-?-?-?- Negative 138 28 -?-?-?-?-?-?-?-?-?-?-?-?- -No VB, LOF. G ood FM. Tdap, flu, larc. Will get 28 wk labs tomorrow. 02/12/22 -?-?-?-?-?-?-?-?-?-?-?-?- 31w 0d 240 lb 2 oz 116/77 -?-?-?-?-?-?-?-?-?-?-?-?- 135 32 -?-?-?-?-?-?-?-?-?-?-?-?- JV- no lof, vagi nal bleeding, or dec fm. plans to go with the flow when it comes to delivery options. if no labor prior to 39 weeks will proceed with section 02/27/22 -?-?-?-?-?-?-?-?-?-?-?-?- 33w 1d 242 lb 132/86 Negative -?-?-?-?-?-?-?-?-?-?-?-?- Negative 125 34 -?-?-?-?-?-?-?-?-?-?-?-?- SM- no vb lof go od fm no regular ctx, decided on RLTCS, scheduled 03/12/22 -?-?-?-?-?-?-?-?-?-?-?-?- 35w 0d 243 lb 8 oz 116/80 Nega tive -?-?-?-?-?-?-?-?-?-?-?-?- Negative 145 36 -?-?-?-?-?-?-?-?-?-?-?-?- JV- no lof, vagi nal bleeding, or dec fm. bp's normal. 03/20/22 -?-?-?-?-?-?-?-?-?-?-?-?- 36w 1d 243 lb 2 oz 124/84 Nega tive -?-?-?-?-?-?-?-?-?-?-?-?- Negative 140 37 -?-?-?-?-?-?-?-?-?-?-?-?- JV- no lof, vagi nal bleeding, or dec fm. will rpt bp before goes home. gbs collected. 03/27/22 -?-?-?-?-?-?-?-?-?-?-?-?- 37w 1d 243 lb 2 oz 118/82 Nega tive -?-?-?-?-?-?-?-?-?-?-?-?- Negative 140 37 -?-?-?-?-?-?-?-?-?-?-?-?- SM- no vb lof go od fm no regular ctx 04/01/22 -?-?-?-?-?-?-?-?-?-?-?-?- 37w 6d 244 lb 6 oz 127/86 Nega tive -?-?-?-?-?-?-?-?-?-?-?-?- Negative 140 40 Cephalic -?-?-?-?-?-?-?-?-?-?-?-?- JV- rpt section next week. no complaints. GBS pos. 04/10/22 -?-?-?-?-?-?-?-?-?-?-?-?- 39w 1d 244 lb 9.6 oz 134/80 124/75 120/80 114/61 131/82 128/68 125/75 130/73 128/56 127/86 116/83 118/76 128/69 126/81 135/87 131/77 -?-?-?-?-?-?-?-?-?-?-?-?- -?-?-?-?-?-?-?-?-?-?-?-?- NST FHR Rate Baby A Baseline: 130 ROS Constitutional Constitutional: Reports systems reviewed and no addt'l complaints, except as documented Eyes Eyes: Denies change in vision ENT HEENT: Reports systems reviewed and no addt'l complaints, except as documented; Denies headache(s) Cardiovascular Cardiovascular: Reports systems reviewed and no addt'l complaints, except as documented; Denies chest pain or dyspnea Respiratory/Chest Respiratory/Chest: Reports systems reviewed and no addt'l complaints, except as documented Gastrointestinal Gastrointestinal: Reports systems reviewed and no addt'l complaints, except as documented; Denies abdominal pain Genitourinary Genitourinary: Reports systems reviewed and no addt'l complaints, except as documented, contractions Details: present (irregular) and movement Details: present; Denies dysuria or genital lesions Musculoskeletal Musculoskeletal: Reports systems reviewed and no addt'l complaints, except as documented Neurologic Neurologic: Reports systems reviewed and no addt'l complaints, except as documented Endocrine Endocrinology: Reports systems reviewed and no addt'l complaints, except as documented Physical Exam Const alert, oriented x3, no apparent distress and healthy appearing HEENT normocephalic and moist oral mucous membranes Head and Scalp: atraumatic Neck full ROM, no lymphadenopathy, supple and thyroid normal General: trachea midline Lymph Lymphatic: no lymphadenopathy noted Chest inspection of chest normal Resp normal respiratory effort Cardio regular rate GI normal to inspection, nondistended, normoactive bowel sounds, soft to palpation and non-tender Inspection: gravid external exam normal Manual OB Exam: estimated gestational size appropriate, presentation cephalic, dilated, effaced and station Extremity normal to inspection General Extremity: Negative for edema Skin no rashes or lesions noted Neuro no focal motor deficits and deep tendon reflexes 2+ bilaterally Motor Exam: strength 5/5 throughout and clonus absent Psych mental status grossly normal Labs Labs Labs: Blood Type O POSITIVE Antibody Screen NEGATIVE Hct 33.1 % (37-47) L Hgb 11.0 g/dL (12.0-15.0) L Syphilis Total Ab Non-reactive Rubella IgG Antibody Reactive (Nonreactive) Hep Bs Antigen Non-Reactive (Nonreactive) Chlamydia DNA (ARTURO) Negative (Negative) Neisseria gonorrhoeae DNA (ARTURO) Negative (Negative) HIV 1&2 Antibody Non-Reactive (Nonreactive) Glucose 1 Hr 50 gm 133 mg/dL (70-140) Rhogam given: No Miscellaneous Test Assessment & Plan (1) Marijuana abuse: COMMENT: random tox screen. +NOB +12/01/21, + on 02/12/22 (2) Depression affecting : COMMENT: counseling encouraged, no meds (3) History of thyroid cancer: COMMENT: synthroid, labs q trimester (4) History of delivery: COMMENT: plan RLTCS at 39 with SM, RLTCS scheduled for 04/10 @ 12 with SM (5) History of placenta abruption: COMMENT: neg apl panel (6) History of severe pre-eclampsia: COMMENT: apl panel neg, baseline labs. 81 mg ASA recommended. (7) : QUALIFIERS: Weeks of gestation: 37 weeks Qualified Code(s): Z3A.37 - 37 weeks gestation of COMMENT: anatomy nl, NIPT low risk carrier screening declined. (8) Supervision of high-risk : COMMENT: PRR JAZMINE 04/16/22 boy Yonas Kwan (9) Postoperative primary hypothyroidism: (10) Positive GBS test: PLAN: Plan plan RLTCS UPDATE- I have seen the patient and performed any clinically relevant updates to the history and physical exam. Annia Engle MD
[2022-04-10] MEDS: Lactated Ringers 1,000 ML 999 ML IV (10:25)
[2022-04-10 10:47] LABS: Absolute Lymphocyte Count 1.76 X10^3/uL (0.83-4.51); Absolute Neutrophil Count 7.2 X10^3/uL (2.0-7.7); Basophil# 0.05 X10^3/uL; Basophil% 0.5 % (0-1); Eosinophil# 0.13 X10^3/uL; Eosinophils% 1.3 % (0-5); Hemoglobin 13.5 g/dL (12.0-15.0); Lymphocyte # 1.76 X10^3/ul (0.83-4.51); Lymphocyte % 18.1 % (19-41); Mean Corp Hgb Conc 33.8 g/dL (32-36); Mean Corpuscular Hgb 30.3 pg (27.0-32.0); Mean Corpuscular Volume 89.9 fL (81-99); Mean Platelet Vol. 11.1 fl (6.2-12.0); Monocyte# 0.59 X10^3/uL; Monocyte% 6.1 % (0-10); NRBC Flagged by Analyzer 0 % (0-5); Neutrophil # 7.16 X10^3/uL (2.7-7.7); Neutrophil % 73.4 % (47-70); Platelet Count 281 K/mm3 (150-450); RBC Distribution Width CV 12.9 % (11.6-14.6); RBC Distribution Width SD 42.2 fl (35.1-43.9); Red Blood Count 4.45 M/mm3 (4.2-5.4); White Blood Count 9.8 K/mm3 (4.4-11.0)
[2022-04-10] MEDS: Acetaminophen 500 MG Tablet 1000 MG PO ×3 (11:01→23:52)
[2022-04-10] MEDS: Lactated Ringers 1,000 ML 150 ML IV ×2 (11:34→16:14)
[2022-04-10] MEDS: Cefazolin 2 GM in 0.9% Normal Saline 100 ML IV (11:35)
[2022-04-10] MEDS: Sodium Citrate/Citric Acid 30 ML UDC PO (11:35)
[2022-04-10 11:43] LABS: Amphetamine Urine VISTA NEGATIVE (<1000 ng/mL); Barbiturate Urine VISTA NEGATIVE (< 200 ng/mL); Benzodiazepine Urine VISTA NEGATIVE (< 200 ng/mL); Cocaine Urine VISTA NEGATIVE (< 300 ng/mL); Ecstacy Urine VISTA NEGATIVE (< 500 ng/mL); Methadone Urine VISTA NEGATIVE (< 300 ng/mL); PCP Urine VISTA NEGATIVE (< 25 ng/mL); THC Urine VISTA POSITIVE (< 50 ng/mL); Vista UDS pH Range 6
[2022-04-10] MEDS: Oxytocin 15 Units/NS 250ml 15 UNITS/250 ML IV.SOLN 83 UNITS IV (13:20)
[2022-04-10] MEDS: Ketorolac 30 MG/ML Syringe IV ×2 (13:53→20:09)
[2022-04-10] MEDS: proCHLORPERazine 10 MG/2 ML Vial IV (15:18)
[2022-04-10] MEDS: Enoxaparin 40 MG/0.4 ML Syringe SC (23:52)
[2022-04-11] VITALS (9 sets, daily range): BP systolic 120–133; BP diastolic 76–83; PULSE 58–82; RESP 16; TEMP 36.4–36.8; O2SAT 96–99
[2022-04-11] MEDS: Ketorolac 30 MG/ML Syringe IV ×2 (01:55→08:23)
[2022-04-11] MEDS: Acetaminophen 500 MG Tablet 1000 MG PO ×2 (05:55→11:57)
[2022-04-11] MEDS: Levothyroxine 100 MCG Tablet 200 MCG PO (05:55)
[2022-04-11 06:09] LABS: Hematocrit 33.1 % (37-47); Mean Corp Hgb Conc 33.2 g/dL (32-36); Mean Corpuscular Hgb 30.2 pg (27.0-32.0); Mean Corpuscular Volume 90.9 fL (81-99); Mean Platelet Vol. 10.9 fl (6.2-12.0); Platelet Count 223 K/mm3 (150-450); RBC Distribution Width CV 12.9 % (11.6-14.6); RBC Distribution Width SD 42.5 fl (35.1-43.9); Red Blood Count 3.64 M/mm3 (4.2-5.4); White Blood Count 12.7 K/mm3 (4.4-11.0)
--- NOTE | 2022-04-11 07:08 | OP.PCM_ITS ---
Assessment & Plan (1) Supervision of high-risk : COMMENT: PRR JAZMINE 04/16/22 rohit Schroederlelia Kwan (2) : QUALIFIERS: Weeks of gestation: 37 weeks Qualified Code(s): Z3A.37 - 37 weeks gestation of COMMENT: anatomy nl, NIPT low risk carrier screening declined. (3) History of severe pre-eclampsia: COMMENT: apl panel neg, baseline labs. 81 mg ASA recommended. (4) History of placenta abruption: COMMENT: neg apl panel (5) History of delivery: COMMENT: plan RLTCS at 39 with , RLTCS scheduled for 04/10 @ 12 with (6) History of thyroid cancer: COMMENT: synthroid, labs q trimester (7) Depression affecting : COMMENT: counseling encouraged, no meds (8) Marijuana abuse: COMMENT: random tox screen. +NOB +12/01/21, + on 02/12/22 (9) Positive GBS test: (10) Postoperative primary hypothyroidism: (11) delivery delivered: COMMENT: RLTCS 39 rohit [place]ham Maternal Data Information JAZMINE Calculator Estimated Delivery Date Method Current WG Current Estimate 04/16/22 LMP (Certain) 39w 2d Final JAZMINE Source: LMP Details Operative Information Date of Procedure: 04/10/22 Pre-Operative Diagnosis: Previous Post-Operative Diagnosis: same Indications for : Repeat Elective Classification: Scheduled Procedure Type: low transverse consumer lending manager #1: Jason Kaplan Type of Anesthesia: Spinal Special Medications: none Antibiotic Given: Ancef 2 grams IV x1 Drain: Tilley to straight drain Estimated Blood Loss: 500 Fluids Replaced: crystalloid Findings Description of Procedure: Spinal anesthesia was placed without difficulty. Tilley catheter was placed. The patient was placed in the dorsal supine position with leftward tilt. Patient was prepped and draped in the normal sterile fashion. Pfannenstiel skin incision was made with the scalpel and carried through to the underlying layer of fascia with the scalpel. Fascia was nicked in the midline and the incision extended laterally. The rectus bellies were dissected off superiorly and inferiorly with out complication both sharply and bluntly. The peritoneum was entered digitally. The incision was stretched and a low transverse uterine incision was made with the scalpel. The 's head was delivered atraumatically followed by the anterior and posterior shoulders without complication the rest of the infant delivered. The cord was clamped and cut and the was handed off to awaiting nurse. The placenta was delivered spontaneously immediately following and was noted to be intact and have a three- vessel cord. The uterus was exteriorized cleared of all clots and debris, and the incision was closed in a double layer closure using #1 Monocryl. The ovaries and fallopian tubes were noted to be within normal limits. The uterus was returned to the maternal abdomen and gutters were cleared of all clots and debris. The peritoneum was closed with 3-0 Monocryl in a running fashion. Gloves were changed prior to fascial closure. Fascia was closed with 0 PDS in a running fashion. Subcutaneous tissue was copiously irrigated and the skin was closed with 3-0 Monocryl in a subcuticular fashion. Mepilex dressing was applied without complication. Patient was taken to recovery in stable condition. It was discussed with the patient that based on the clinical information obtained during this encounter, combined with her history, at this time I would recommend cesareans for future deliveries if further pregnancies are desired. Amniotic Membrane Rupture Type: Artificial Amniotic Fluid Description: Clear Placenta Disposition: [facility] Cord Vessel Description: 3 Vessels Cord Entanglement: None Delayed Cord Clamping: Yes Complications Risks of Surgery Discussed w/Patient: Bleeding, Infection, Need for Future C- Sections and Injury to surrounding structure(s) including bowel and bladder Vaginal Delivery Complication Complications: None Admit VTE Documentation VTE Present on Admission: No VTE Mechan Device Prophylaxis: SCD's Procedures Urinary/Genital [id number]: [id number] delivery+PP Care([facility])
--- NOTE | 2022-04-11 07:10 | DCINST_ITS ---
Discharge Instructions Diet Discharge Diet: No restrictions Activity Discharge Activity: Return to Normal Activity, May Drive (when pain free and off narcotic pain meds), May Shower and May Take a Tub Bath (in 4 weeks) May resume sexual activity in: 6 weeks Weight Bearing Status: Full weight bearing Lifting Restrictions: under 30 lbs for 6 weeks Dressing / Incision Call your doctor if your incision/area has: Continuous Slow Oozing, Sudden Increased Bleeding, Increased Pain/ Swelling, Increased Redness, Foul Smelling Discharge and - Call your doctor if you observe: Fever of 101 or Higher, Using more than 1 pad per hour, Shortness of breath, Chest pain and Uncontrolled pain Suture Line Care: Avoid Pulling/Pushing and Avoid Pinching/Bending Change Dressing in: 1 week (leave open to air after removed) Remove Dressing in: 1 week (if present) Cleanse incision/area with: Soap & Water and Keep Dressing Clean & Dry Follow Up Care Please Follow Up With: Annia Engle MD When: Call to make an appointment with your doctor for a postop visit in 2 and 6 weeks. Test Results: Test results from this visit will be discussed in further detail at your follow- up appointment, if applicable. Discharge Plan Admission Admit Date/Time: 04/10/22 10:38 Attending Provider: Annia Engle Primary Care Provider: Care PhysicianRosabla Primary Discharge Orders/Prescriptions Prescriptions: New oxycodone-acetaminophen [Percocet] 5-325 mg tablet 1 tab PO Q6H PRN (Reason: pain) 7 Days Qty: 20 0RF naproxen [naproxen] 500 mg tablet 500 mg PO BID PRN PRN (Reason: Pain) Qty: 30 1RF No Action PNV #[id number] 30 mg iron-10 mg iron-1 mg capsule 1 cap PO DAILY aspirin 81 mg tablet,delayed release (DR/EC) 81 mg PO DAILY levothyroxine 200 mcg tablet 200 mcg PO .COMPLEX Rx Instructions: 200 mcg orally; 2 tabs q Wednesday and and Wednesday, 1 tab rest of week Referrals / Follow Up: Care Physician,No Primary [Primary Care Provider] - Disposition Disposition (needs filled in before D/C Order can be placed): Home, Self Care
[2022-04-11] MEDS: Senna/Docusate Sodium 1 Tablet PO (10:04)
--- NOTE | 2022-04-11 11:54 | CASEMGMT ---
Social Work Assessment Labor and Delivery Unit Date/Time of referra; 04/10/22, 10
--- NOTE | 2022-04-11 11:56 | CASEMGMT ---
Social Work Labor and Delivery Unit Date/Time of Referral: 04/10/22, 10:53am Referred by Dr. Christie Date/Time of Intervention: 04/11/22. 9am Reason for referral: THC use History obtained from: OCTAVIA Household Composition: MOB, DAT Madden, son Dhaval(age 3) and now son Yonas. FOB and MOB have been together for 5 years, this is their second child together. Parent/Guardian Status: MOB and DAT Kwan are the parents of Yonas Medical History: MOB: history of anxiety, thyroid cancer, in remission. Baby: Yonas born 04/10/22, 3690 grams. Apgars 8 and 9 at one and five minutes. Educational History: Both MOB and FOB completed high school, FOB completed some college Financial Concerns: MOB reports none. She was working but plans to stay home now. FONay is the National Sales Representative at [employer]. Infant Supplies: MOB reports they have all needed supplies including car seat, bassinet, clothing, diapers, wipes, bottles. MOB plans to breast feed Childcare/Caregivers: OCTAVIA's aunt and uncle are helpful Transportation: They have a car and truck Programs/Agencies involved: They had [employer] for Dhaval until he was [age]. They also have [facility] Medicaid Children's Services/Legal Issues: Children's Services was called when Dhaval was born due to THC use, no Children's Services involvement however. Behavioral Health Issues: Mental Health: OCTAVIA reports none for FOB. She reports to have some anxiety. She has been in counseling in the past. She reports her mom and OCTAVIA was diagnosed with thyroid cancer on the same day in 2016. She states had some depression and she did counseling after this. She has not been in counseling since 2018. She has not been on medication for anxiety or depression in the past. Substance abuse: Both she and FOB use marijuana, they smoke and eat gummies. MOB had 4 positive tox screens during , baby positive also. MOB also was positive for marijuana during her last . ISMA explored w/MOB the reason for her use. She states she uses as it helps with her appetite. She states she has anxiety around food. She states she grew up being told to not eat too much. MOB states she plans to stop use while . MOB denies use of any other substances. SW gently educated MOB that using marijuana to stimulate her appetite is not addressing the underlying issue. SW suggested to consider therapy as a way to explore this further. MOB states she has tried it before and it did not help. SW suggested she may want to try it again, as she is addressing the symptoms of her anxiety around eating, but not the core issues. Family/Social Stressors: MOB reports none Depression/Anxiety/shaken baby/safe sleeping/[employer]/Mental health resources/[facility]/Mental health Hotline: SW provided information on all of these topics and reviewed the information w/MOB. SW reviewed in particular warning signs of depression. SW did speak w/MOB about if she is having symptoms, to speak w/her PRODUCTION MECHANIC about it. We talked about medication for a short term as beneficial for some if needed, if having . MOB states understanding. Assessment: There is concern due to continued THC use. SW let MOB know would be calling Children's Services in regard to this, MOB states understanding. SW encouarged MOB to address underlying issues in an effort to discontinue THC use. MOB does state will stop using while . SW called [facility], spoke w/Kathryn Okeefe, referral made. MOB is cleared to go home today with baby, they may follow up w/MOB at home. SW let bedside RN know. No further social service needs at this time. MIGUEL Waters
[2022-04-11] MEDS: Naproxen 500 MG Tablet PO (14:14)
--- NOTE | 2022-04-11 16:37 | NURSING ---
Reviewed and agreed with Jeanie COOPER charting.
== END 2022-04-11 16:15 | disposition home or self-care (01) | DRG 540 ==
PROVIDERS: Admitting Provider Obstetrics & Gynecology; Visit Provider Obstetrics & Gynecology
PROC: (CPT 59514; principal; 2022-04-10 11:15)
DX: O34.211 Maternal care for low transverse scar from previous cesarean delivery (principal); O99.324 Drug use complicating childbirth; E89.0 Postprocedural hypothyroidism; F12.10 Cannabis abuse, uncomplicated; F17.200 Nicotine dependence, unspecified, uncomplicated; O99.824 Streptococcus B carrier state complicating childbirth; Z3A.37 37 weeks gestation of pregnancy; Z37.0 Single live birth; O99.334 Smoking (tobacco) complicating childbirth; O99.284 Endocrine, nutritional and metabolic diseases complicating childbirth
CPT/HCPCS: 59025; 59050; 80307; 85025; 85027; 86850; 86900; 86901; 99218; J7120; G0378; J2405

== ENCOUNTER → 2022-05-14 | Outpatient (CLI) | payer MEDICAID, SELFPAY ==
[2022-05-14 16:35] LABS: Thyroid Stim Hormone (TSH) 0.28 uIU/mL (0.358-3.74)
== END | disposition home or self-care (01) ==
LOC: BIMLAB 14:26
PROVIDERS: Referring Provider Internal Medicine Endocrinology, Diabetes & Metabolism; Visit Provider Internal Medicine Endocrinology, Diabetes & Metabolism
DX: E89.0 Postprocedural hypothyroidism (principal)
CPT/HCPCS: 36415; 84439; 84443

== ENCOUNTER 2022-10-07 13:52 | Emergency (ER) | payer MEDICAID, SELFPAY ==
[2022-10-07 13:53] VITALS: BP 148/86; PULSE 102; RESP 16; TEMP 36.8; O2SAT 100; BMI 39.0
--- NOTE | 2022-10-07 14:16 | RAD_ITS ---
STUDY: X-RAY - RIGHT WRIST REASON FOR EXAM: Female, 32 years old. Dog bite TECHNIQUE: 3 view(s) of the wrist were obtained. COMPARISON: None. FINDINGS: Normal visualized distal radius and ulna. Normal radiocarpal articulation. Normal distal radioulnar articulation. Normal carpal bones. Normal carpal articulations. Normal carpometacarpal articulation of the thumb. Normal second through fifth carpometacarpal articulations. Normal visualized metacarpal bones. Soft tissue swelling. No radiopaque foreign body seen. RAD/Wrist min 3 Views IMPRESSION: Soft tissue swelling. No radiopaque foreign seen. Electronically Signed: Enrique Gomez MD at 14:37 EDT ,
--- NOTE | 2022-10-07 14:18 | EX.ED.VISEXT ---
HPI History of Present Illness Chief Complaint: Bite Informant: patient Narrative Narrative: Patient had a dog bite on her right dominant hand and wrist by her own dog just shortly before arrival. She evidently has 2 dogs at home. They live on separate floors as they are known to not like each other. They got out at the same time and she tried to get between them to prevent a fight. She got bitten. There was mild bleeding but it is resolved. No distal numbness tingling weakness or loss of function. Last tetanus was March 2021. She denies allergies to any antibiotics. No other injuries. ROS ROS ED Constitutional Constitutional ED: Denies fever(s) or subjective Respiratory/Chest Respiratory/Chest: Denies dyspnea Gastrointestinal Gastrointestinal: Denies nausea or vomiting Musculoskeletal Musculoskeletal: Reports other Details: See history of present illness. Integumentary Reports other Details: See history of present illness. Neurologic Neurologic: Denies paresthesias or weakness Hematologic/Lymphatic Hematologic/Lymphatic: Denies easy bleeding or easy bruising Allergic/Immunologic Allergic/Immunologic ED: Denies urticaria PFSH PFSH Medical History Hepatitis A Placenta previa Positive GBS test Postoperative primary hypothyroidism Pre-eclampsia Thyroid cancer Home Medications vitamin#30 30 mg iron-10 mg iron-folic acid 1 mg-omg3 capsule 1 cap PO DAILY Check with primary doctor 09/11/21 [History Last Taken Unknown] norethindrone (contraceptive) 0.35 mg tablet (Ortho Micronor) 0.35 mg PO DAILY #28 tabs 05/21/22 [Rx Last Taken Unknown] levothyroxine 200 mcg tablet 200 mcg PO .COMPLEX Check with primary doctor #38 tabs 08/19/22 [Rx Last Taken Unknown] amoxicillin 875 mg-potassium clavulanate 125 mg tablet 1 tab PO Q12H #14 TABLETS 10/07/22 [Rx Last Taken Unknown] Allergy/AdvReac Type Severity Reaction Status Date / Time Bleach (Sodium Hypochlorite) Allergy Anaphylaxis Verified 10/07/22 13:55 Family History Grandmother CVA (cerebral vascular accident) Heart disease Grandfather Diabetes Aunt Breast cancer Ovarian cancer Surgical History delivery delivered lymphadenectomy (~2017) S/P thyroidectomy (~2014) Social History Smoking Status: Former smoker alcohol intake: never substance use type: marijuana caffeine: Yes what type of physical activity do you participate in: none seatbelt use: always do you feel safe at home: Yes 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 HEENT shows no trauma Cardiorespiratory shows easy unlabored breathing. O2 saturations are normal at 100% on room air showing no hypoxia. Extremities: are normal other than the right wrist. On the dorsal medial aspect just over the area of the ulnar styloid is a 1 cm tear of the skin. No active bleeding. No swelling. There is no deformity. Distally there is no new numbness tingling or loss of function. All tendon function is intact. Capillary refill and sensation is intact. Skin: See above. Const Vital Signs: 10/07/22 13:53 Temperature 98.2 F Temperature Source Temporal Pulse Rate 102 H Respiratory Rate 16 Blood Pressure 148/86 H Blood Pressure Mean 106 Pulse Ox 100 Oxygen Delivery Method Room Air MDM MDM MDM Narrative Medical decision making narrative: My independent interpretation the patient's three-view x-ray of her right wrist shows no sign of fracture or radiopaque foreign body. Final reading is similar but does show soft tissue swelling. I will place the patient on antibiotics. I explained to her that it is not appropriate to so this is a rate of infection goes up. If she desires she could have it closed in 3 to 5 days if there is no sign of infection but it should close on its own anyway. She should keep it clean. She can rinse it. She should then keep it covered with a soft nonadherent bandage. Radiography Diagnostic Testing: Clinical Impression(s) from Imaging Studies Wrist X-Ray 10/07/22 14:16 IMPRESSION: Soft tissue swelling. No radiopaque foreign seen. Electronically Signed: Enrique Gomez MD at 14:37 EDT , Discharge Plan Triage Chief Complaint: Bite ED Provider: Blake Abdi Dx/Rx/DC Orders Clinical Impression: Dog bite of right wrist Instructions: ED Dog Bite Prescriptions: New amoxicillin-pot clavulanate [amoxicillin-pot clavulanate] 875-125 mg tablet 1 tab PO Q12H Qty: 14 0RF No Action PNV #[id number] acid-omega3 30 mg iron-10 mg iron-1 mg capsule 1 cap PO DAILY norethindrone (contraceptive) [Ortho Micronor] 0.35 mg tablet 0.35 mg PO DAILY Qty: 28 12RF Rx Instructions: start day 1 of menstrual cycle levothyroxine 200 mcg tablet 200 mcg PO .COMPLEX Qty: 38 1RF Rx Instructions: 200 mcg orally; 2 tabs q Wednesday and and Wednesday, 1 tab rest of week Primary Care Provider: Care Physician,No Primary Referrals: Shari Schwartz DO [Med Staff - Clock Assembler] - 3-5 Days if not improving Care Physician,No Primary [Primary Care Provider] - Disposition Disposition: Home, Self Care
[2022-10-07] MEDS: Amox/Clavulanate 875 MG Tablet PO (14:22)
--- NOTE | 2022-10-07 15:08 | CM.ED ---
Social Work Note Referral Source: case find Referral Reason: no PCP SW met with patient and introduced herself and role as [facility] [place]. Patient lying on hospital bed and agreeable to speak with SW. SW inquired about patient's insurance and current PCP. Patient verified insurance and reports no current PCP. SW provided patient with a list of local PCPs in network with patient's insurance and accepting new patients. Patient was receptive towards list and voiced no other needs. SW remains available if needs arise. Nadira Jones MSW, AMANDA
== END 2022-10-07 15:25 | disposition home or self-care (01) ==
PROVIDERS: Emergency Provider Emergency Medicine; Visit Provider Emergency Medicine
DX: S61.551A Open bite of right wrist, initial encounter (principal); Z87.891 Personal history of nicotine dependence; W54.0XXA Bitten by dog, initial encounter
CPT/HCPCS: 73110; 99283

== ENCOUNTER → 2022-10-09 | Outpatient (CLI) | payer MEDICAID, SELFPAY ==
[2022-10-09 16:07] LABS: T4 Free Direct 1.57 ng/dL (0.76-1.46); Thyroid Stim Hormone (TSH) 0.15 uIU/mL (0.358-3.74)
[2022-10-13 09:09] LABS: Anti-Thyroglobulin AB < 1.0 IU/mL (0.0-0.9); Thyroglobulin, Serum Qt. < 0.1 ng/mL (1.5-38.5)
== END | disposition home or self-care (01) ==
LOC: BIMLAB 12:06
PROVIDERS: Visit Provider Internal Medicine Endocrinology, Diabetes & Metabolism
DX: C73 Malignant neoplasm of thyroid gland (principal); E89.0 Postprocedural hypothyroidism
CPT/HCPCS: 36415; 84432; 84439; 84443; 86800

== ENCOUNTER → 2023-12-17 | Outpatient (CLI) | payer MEDICAID, SELFPAY ==
[2023-12-17 13:01] LABS: AST(SGOT) 27 U/L (15-37); Alanine Aminotransfer ALT/SGPT 40 U/L (13-56); Albumin, Serum 3.6 g/dL (3.2-5.0); Alkaline Phosphatase 62 U/L (45-117); Anion Gap 7 (5-15); BUN 11 mg/dL (7-18); BUN/Creat Ratio 15.4 RATIO (10-20); Calcium,Total 8.9 mg/dL (8.5-10.1); Chloride 105 mmol/L (98-107); Creatinine, Serum 0.71 mg/dL (0.55-1.02); EST Glomerular Filtration Rate 101 mL/min (>60); Est Glom Filt Rate - Afr Amer 122 mL/min (>60); Globulin 3.5 g/dL (2.2-4.2); Glucose 96 mg/dL (74-106); Potassium 4.1 mmol/L (3.5-5.1); Protein, Total 7.1 g/dL (6.4-8.2); Sodium Level 138 mmol/L (136-145); T4 Free Direct 1.05 ng/dL (0.76-1.46)
[2023-12-28 01:07] LABS: Thyroglobulin RIA < 2.0 ng/mL (.)
== END | disposition home or self-care (01) ==
PROVIDERS: Referring Provider Internal Medicine Endocrinology, Diabetes & Metabolism; Visit Provider Internal Medicine Endocrinology, Diabetes & Metabolism
DX: C73 Malignant neoplasm of thyroid gland (principal); E89.0 Postprocedural hypothyroidism
CPT/HCPCS: 36415; 80053; 84432; 84439; 84443; 86800

== ENCOUNTER → 2024-11-09 | Outpatient (CLI) | payer MEDICAID, SELFPAY | END | disposition home or self-care (01) | PROVIDERS: Referring Provider Internal Medicine Endocrinology, Diabetes & Metabolism; Visit Provider Internal Medicine Endocrinology, Diabetes & Metabolism | DX: E89.0 Postprocedural hypothyroidism (principal) | CPT/HCPCS: 36415; 84439; 84443 ==

== ENCOUNTER → 2025-03-12 | Outpatient (CLI) | payer MEDICAID, SELFPAY | END | disposition home or self-care (01) | LOC: LAB 11:47 | PROVIDERS: Referring Provider Internal Medicine Endocrinology, Diabetes & Metabolism; Visit Provider Internal Medicine Endocrinology, Diabetes & Metabolism | DX: E89.0 Postprocedural hypothyroidism (principal); C73 Malignant neoplasm of thyroid gland | CPT/HCPCS: 36415; 84432; 84439; 84443; 86800 ==